=== PATIENT | female | born 1945 | race Caucasian/White ===

== ENCOUNTER 2017-05-11 18:57 | Emergency (ER) | payer MEDICARE, OTHER ==
[~2017-05-11] VITALS: Ht 154.9 cm; Wt 92.1 kg
--- NOTE | 2017-05-11 19:11 | PHYS DOC ---
General Chief Complaint: SHORTNESS OF BREATH Stated Complaint: SOB Time Seen by MD: 18:59 Source: patient, EMS Exam Limitations: clinical condition (vague historian history obtained from EMS and [facility] medical records) Problems: History of Present Illness Initial Comments 71-year-old female brought to the ED by EMS for chest tightness, shortness of breath and left leg swelling. Patient has history of coronary artery disease CHF and COPD among other extensive medical problems, chronic respiratory failure uses 3 L of O2 at home. She reports 2 days of worsening shortness of breath fever chills and body aches. She took an extra 40 mg of Lasix and 20 mEq of potassium at home prior to calling EMS and on arrival 1400 mL of urine output noted in her suprapubic Daly catheter. She also reports she has chronic bilateral leg swelling however over the past 24 hours has had worsening of her left leg swelling redness and pain. Earlier today complaining of worsening shortness of breath with chest tightness no nausea vomiting arm or neck symptoms. On arrival the patient was afebrile heart rate 91, 94% on her home 3 L of O2. Uses 3L O2 NC at home Numerous medication allergies she takes no blood thinners has history of GI bleed. She is a vague historian and past medical history is obtained from [facility] records. Timing/Duration: other Severity: severe Modifying Factors: worse with movement, improves with other Associated Symptoms: chest pain, cough, fever/chills, malaise, shortness of breath Allergies: Coded Allergies: Iodine and Iodide Containing Produc (Verified Allergy, Unknown, 05/11/17) NSAIDS (Non-Steroidal Anti-Inflamma (Verified Allergy, Unknown, 05/11/17) Penicillins (Verified Allergy, Unknown, 05/11/17) acetaminophen (Verified Allergy, Unknown, 05/11/17) adhesive (Verified Allergy, Unknown, 05/11/17) amitriptyline (Verified Allergy, Unknown, 05/11/17) aspirin (Verified Allergy, Unknown, 05/11/17) butorphanol (Verified Allergy, Unknown, 05/11/17) carbamazepine (Verified Allergy, Unknown, 05/11/17) cefamandole (Verified Allergy, Unknown, 05/11/17) cephalexin (Verified Allergy, Unknown, 05/11/17) chlorpromazine (Verified Allergy, Unknown, 05/11/17) clindamycin (Verified Allergy, Unknown, 05/11/17) codeine (Verified Allergy, Unknown, 05/11/17) diflunisal (Verified Allergy, Unknown, 05/11/17) fenoprofen (Verified Allergy, Unknown, 05/11/17) fentanyl (Verified Allergy, Unknown, 05/11/17) flurazepam (Verified Allergy, Unknown, 05/11/17) gentamicin (Verified Allergy, Unknown, 05/11/17) hydroxyzine (Verified Allergy, Unknown, 05/11/17) ibuprofen (Verified Allergy, Unknown, 05/11/17) ketorolac (Verified Allergy, Unknown, 05/11/17) levofloxacin (Verified Allergy, Unknown, 05/11/17) lorazepam (Verified Allergy, Unknown, 05/11/17) lovastatin (Verified Allergy, Unknown, 05/11/17) meclizine (Verified Allergy, Unknown, 05/11/17) nalbuphine (Verified Allergy, Unknown, 05/11/17) naproxen (Verified Allergy, Unknown, 05/11/17) nepafenac (Verified Allergy, Unknown, 05/11/17) nitrofurantoin (Verified Allergy, Unknown, 05/11/17) pentazocine (Verified Allergy, Unknown, 05/11/17) povidone-iodine (Verified Allergy, Unknown, 05/11/17) propoxyphene (Verified Allergy, Unknown, 05/11/17) soap (Verified Allergy, Unknown, 05/11/17) spironolactone (Verified Allergy, Unknown, 05/11/17) strawberry (Verified Allergy, Unknown, 05/11/17) tomato (Verified Allergy, Unknown, 05/11/17) tramadol (Verified Allergy, Unknown, 05/11/17) trimipramine (Verified Allergy, Unknown, 05/11/17) Past Medical History Medical History: other (chronic resp failure uses 3L O2 NC, RUE DVT, NSTEMI, CHF, COPD, chronic pain, HTN, GI bleed, hypothyroid, HLP, neurogenic bladder, gastric ulcers, sleep apnea, chronic RUE tremor, dementia, right rotator cuff tear, chronic opioid ) Surgical History: other (appendectomy, cholecystectomy, cataracts, left 1st MT osteotomy, tonsillectomy, left TKR) Psychosocial History: anxiety, depression Social History Smoker: quit greater than 1 year (2PPD x 5 years quit 1984) Alcohol: none Drugs: none Review of Systems Constitutional: see HPI Respiratory: see HPI Cardiovascular: see HPI, denies palpitations, denies syncope Gastrointestinal: denies abdominal pain, denies diarrhea, denies nausea, denies vomiting Musculoskeletal: see HPI, back pain (chronic) Hematologic/Lymphatic: anemia Physical Exam General Appearance: no apparent distress, obese Ear, Nose, Throat: other (hard of hearing, poor dentition airway is patent) Neck: non-tender, supple Respiratory: no respiratory distress, decreased breath sounds, rales, wheezing Cardiovascular: normal peripheral pulses, regular rate, rhythm Gastrointestinal: normal bowel sounds, non tender, soft Extremities: other (2+ right leg swelling, 4+ left leg swelling with erythema and warmth) 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 AP Chest: cardiac silhouette enlarged mediastinal structures appear normal, patchy bilateral infiltrate, interpreted by me. 2109: CT ordered/changed to noncontrast by RAD as has iodine allergy PATIENT: SARA JOE ACCOUNT: [id number] : 1945 LOCATION: ER AGE: 71 SEX: F EXAM STATUS: REG ER ORD. PHYSICIAN: CHERYLE FLOYD DO REASON: pain/swelling, dvt in past PROCEDURE: VENOUS LOWER EXTREMITY LEFT EXAM: Left lower extremity venous Doppler sonogram. HISTORY: Pain. TECHNIQUE: Rene scale and color Doppler sonographic evaluation of the left lower extremity veins with spectral waveform analysis was performed. FINDINGS: There is normal color flow, normal compressibility and there are normal spectral waveforms in the common femoral, superficial femoral, popliteal, posterior tibial and greater saphenous veins. IMPRESSION: No Doppler evidence of lower extremity deep venous thrombosis. Electronically signed by: Pauline Fonseca MD (05/11/2017 9:10 PM) [facility] DICTATED AND SIGNED BY: PAULINE FONSECA MD DATE: 05/11/172109 CC: CHERYLE FLOYD DO; RILEY DEWITT D ~ PATIENT: SARA JOE ACCOUNT: [id number] : 1945 LOCATION: ER AGE: 71 SEX: F EXAM STATUS: REG ER ORD. PHYSICIAN: CHERYLE FLOYD DO REASON: dyspnea, effusion, elev d-dimer PROCEDURE: CT CHEST WO CONTRAST EXAM: Chest CT without intravenous contrast. HISTORY: Dyspnea. TECHNIQUE: Computed tomographic images of the chest were obtained without contrast. Multiplanar reformatting was performed. *One or more of the following individualized dose reduction techniques were utilized for this examination: 1. Automated exposure control. 2. Adjustment of the mA and/or kV according to patient size. 3. Use of iterative reconstruction technique. COMPARISON: None. FINDINGS: There is no significant pleural effusion. There is no pneumothorax. There is bilateral lower lobe interstitial infiltrate with superimposed atelectasis or scarring. There is also infiltrate, atelectasis or scarring within the lingula and right middle lobe. There is a 7 mm nodule within the right middle lobe, with smaller adjacent nodular opacities measuring approximately 2 mm. The heart is upper normal in size. There is coronary artery and aortic atherosclerosis. There is calcification of the aortic valve. No pathologically enlarged lymph node is seen. There is a patulous esophagus. The lesion is seen within the liver on the [id number]. The visualized portions of the pancreas, spleen, adrenal glands and kidneys are unremarkable. There are degenerative changes throughout the spine. There are multiple chronic appearing mild thoracic wedge compression fractures. No acute fracture is seen. IMPRESSION: 1. Bilateral lower lobe infiltrate with superimposed atelectasis or scarring. There is also right middle lobe and lingular infiltrate, atelectasis or scarring. 2. 7 mm nodule within the right middle lobe with adjacent smaller nodular opacities. Follow up according to Fleischner Society criteria. 3. Patulous esophagus. Fleischner Society recommendations (Radiology 2005; 237; 395-400): In a low risk patient: <4mm - No follow up required. >4-6mm- 12 month follow up, if unchanged, no further follow up. >6-8mm- 6-12 month follow up, then at 18-24 months if no change. >8mm- 3, 9, 24 month follow up or consideration of PET/CT. In a high risk patient: <4mm - 12 month follow up, if unchanged then no further follow up. >4-6mm- 6-12 month follow up, then at 18-24 months if no change. >6-8mm- 3-6 month follow up, then at 9-12 months and 24 months if no change >8mm- Same as for low risk patient. Electronically signed by: Pauline Fonseca MD (05/11/2017 9:40 PM) [facility] DICTATED AND SIGNED BY: PAULINE FONSECA MD DATE: 05/11/172135 CC: CHERYLE FLOYD DO; RILEY DEWITT ~ No leukocytosis, chemistry and cardiac enzymes unremarkable, d-dimer 0.88 influenza studies negative I discussed the need for observation admission and antibacterial treatment, patient requests transfer to [facility]. 7: I discussed the patient with [facility] transfer team physician Dr. Mena , he accepts the patient and will get back to us shortly regarding which facility. 2304: Conference call with Giuliana Mena and Shar, patient accepted to [facility] for further evaluation and treatment. Patient is agreeable and comfortable, VSS remain stable 147/61, 97% on home O2. ED course: Patient's vital signs have remained stable and she's remained in no apparent distress throughout the ED course without any additional treatments. Levaquin and Vanco intravenously given for listed infections. Confirmed with patient no quinolone allergy has h/o GI upset, [facility] records indicate patient tolerated Cipro 03/2015. Impressions: Chest pain Multi-lobar pneumonia Left leg cellulitis Chronic respiratory failure stable on home O2 Departure Time of Disposition: 22:39 Disposition: 02 XFER SHT-TRM HOSP Condition: STABLE Additional Instructions: EMS transfer to [facility] CHERYLE FLOYD DO May 11, 2017 19:11
[2017-05-11] MEDS ORDERED: MORPHINE SULFATE 4 MG/ML DISP.SYRIN. IV/SQ PRN (19:30)
[2017-05-11 19:45] LABS: BASO # 0.1 x10^3/uL (0.0-0.2); BASO % 1 % (0-3); EOS # 0.2 x10^3/uL (0.0-0.7); EOS % 2 % (0-3); HEMOGLOBIN 10.4 g/dL (12.0-15.5); LYMPH % 10 % (24-48); MEAN CORPUSCULAR HEMOGLOBIN 29 pg (25-35); MEAN CORPUSCULAR HGB CONC 34 g/dL (31-37); MEAN CORPUSCULAR VOLUME 87 fL (79-100); MONO # 0.5 x10^3/uL (0.0-1.1); MONO % 5 % (0-9); NEUT % 82 % (31-73); PLATELET COUNT 168 x10^3/uL (140-400); RED BLOOD COUNT 3.55 x10^6/uL (3.50-5.40); RED CELL DISTRIBUTION WIDTH 13.7 % (11.5-14.5); WHITE BLOOD COUNT 9.8 x10^3/uL (4.0-11.0)
[2017-05-11 20:15] LABS: BILIRUBIN,URINE NEG (NEG); CLARITY,URINE CLEAR; COLOR,URINE COLORLESS; GLUCOSE,URINE NEG (NEG); NITRITE,URINE NEG (NEG); RBC,URINE 0 /HPF (0-2); UROBILINOGEN,URINE 0.2 mg/dL (0.2 mg/dL); WBC,URINE OCC /HPF (0-4)
[2017-05-11 20:16] LABS: BACTERIA,URINE 0 /HPF (0-FEW)
--- NOTE | 2017-05-11 20:18 | EKG ---
[address] [address] Test Date: 2017-05-11 Test Time: 19:01:43 Pat Name: SARA JOE Department: Room: Gender: F Breakfast And Room Attendant: AMANDA : 1945 Requested By: CHERYLE FLOYD Order Number: [id number] Reading MD: Measurements Intervals [place] Rate: 87 P: 37 DE: 150 QRS: 5 QRSD: 88 T: 30 QT: 376 QTc: 453 Interpretive Statements SINUS RHYTHM NO SPECIFIC ECG ABNORMALITIES RI6.01 No previous ECG available for comparison
[2017-05-11 20:22] LABS: ALBUMIN 3.7 g/dL (3.4-5.0); ALBUMIN/GLOBULIN RATIO 0.9 (1.0-1.7); CALCIUM 9.2 mg/dL (8.5-10.1); GFR 54.7; POTASSIUM 4.1 mmol/L (3.5-5.1); TOTAL BILIRUBIN 0.3 mg/dL (0.2-1.0); TOTAL PROTEIN 7.9 g/dL (6.4-8.2)
[2017-05-11 20:51] LABS: INFLUENZA A PATIENT NEGATIVE (NEGATIVE); INFLUENZA B PATIENT NEGATIVE (NEGATIVE)
[2017-05-11] MEDS ORDERED: IOHEXOL 300 MG/ML 75 ML VIAL. IV ONE (21:00)
--- NOTE | 2017-05-11 21:13 | RAD ---
EXAM: Left lower extremity venous Doppler sonogram. HISTORY: Pain. TECHNIQUE: Rene scale and color Doppler sonographic evaluation of the left lower extremity veins with spectral waveform analysis was performed. FINDINGS: There is normal color flow, normal compressibility and there are normal spectral waveforms in the common femoral, superficial femoral, popliteal, posterior tibial and greater saphenous veins. IMPRESSION: No Doppler evidence of lower extremity deep venous thrombosis. Electronically signed by: Pauline Willoughby MD (05/11/2017 9:10 PM) [facility]
--- NOTE | 2017-05-11 21:43 | RAD ---
EXAM: Chest CT without intravenous contrast. HISTORY: Dyspnea. TECHNIQUE: Computed tomographic images of the chest were obtained without contrast. Multiplanar reformatting was performed. *One or more of the following individualized dose reduction techniques were utilized for this examination: 1. Automated exposure control. 2. Adjustment of the mA and/or kV according to patient size. 3. Use of iterative reconstruction technique. COMPARISON: None. FINDINGS: There is no significant pleural effusion. There is no pneumothorax. There is bilateral lower lobe interstitial infiltrate with superimposed atelectasis or scarring. There is also infiltrate, atelectasis or scarring within the lingula and right middle lobe. There is a 7 mm nodule within the right middle lobe, with smaller adjacent nodular opacities measuring approximately 2 mm. The heart is upper normal in size. There is coronary artery and aortic atherosclerosis. There is calcification of the aortic valve. No pathologically enlarged lymph node is seen. There is a patulous esophagus. The lesion is seen within the liver on the [id number]. The visualized portions of the pancreas, spleen, adrenal glands and kidneys are unremarkable. There are degenerative changes throughout the spine. There are multiple chronic appearing mild thoracic wedge compression fractures. No acute fracture is seen. IMPRESSION: 1. Bilateral lower lobe infiltrate with superimposed atelectasis or scarring. There is also right middle lobe and lingular infiltrate, atelectasis or scarring. 2. 7 mm nodule within the right middle lobe with adjacent smaller nodular opacities. Follow up according to Fleischner Society criteria. 3. Patulous esophagus. Fleischner Society recommendations (Radiology 2005; 237; 395-400): In a low risk patient: <4mm - No follow up required. >4-6mm- 12 month follow up, if unchanged, no further follow up. >6-8mm- 6-12 month follow up, then at 18-24 months if no change. >8mm- 3, 9, 24 month follow up or consideration of PET/CT. In a high risk patient: <4mm - 12 month follow up, if unchanged then no further follow up. >4-6mm- 6-12 month follow up, then at 18-24 months if no change. >6-8mm- 3-6 month follow up, then at 9-12 months and 24 months if no change >8mm- Same as for low risk patient. Electronically signed by: Pauline Willoughby MD (05/11/2017 9:40 PM) [facility]
[2017-05-11 23:00] VITALS: BP 148/76
[2017-05-11] MEDS ORDERED: VANCOMYCIN PER PHARMACY MC PRN (23:15)
[2017-05-11] MEDS ORDERED: VANCOMYCIN 2 GM in IV NORMAL SALINE 500ML 500 ML IV ONE (23:30)
--- NOTE | 2017-05-12 08:12 | RAD ---
Chest radiograph 05/11/2017 9:23 PM Indication: CHF, shortness of air Comparison: Chest radiograph 11/03/2005 Technique: Single portable upright frontal view of the chest is provided. Findings: Cardiomediastinal silhouette is within normal limits. No pulmonary vascular congestion or pneumothorax. Consolidative changes in the left lower lobe and lingula are suspicious for infiltrates. There may be trace pleural effusions. Osseous structures are normal. Impression: Left lower lobe and lingular infiltrates are suspected. Short-term follow-up two-view chest radiograph may be of benefit. Trace bilateral pleural effusions.
== END 2017-05-12 00:21 | disposition short-term general hospital (02) ==
LOC: ER 18:57
DX: J18.1 Lobar pneumonia, unspecified organism (principal); J96.10 Chronic respiratory failure, unspecified whether with hypoxia or hypercapnia; L03.116 Cellulitis of left lower limb; R07.89 Other chest pain; I11.0 Hypertensive heart disease with heart failure; I50.9 Heart failure, unspecified; J44.0 Chronic obstructive pulmonary disease with (acute) lower respiratory infection; G89.29 Other chronic pain; E03.9 Hypothyroidism, unspecified; E78.5 Hyperlipidemia, unspecified; G47.30 Sleep apnea, unspecified; F03.90 Unspecified dementia, unspecified severity, without behavioral disturbance, psychotic disturbance, mood disturbance, and anxiety; F41.9 Anxiety disorder, unspecified; F32.9 Major depressive disorder, single episode, unspecified; I25.10 Atherosclerotic heart disease of native coronary artery without angina pectoris; Z90.49 Acquired absence of other specified parts of digestive tract; Z87.891 Personal history of nicotine dependence; Z86.718 Personal history of other venous thrombosis and embolism; Z87.19 Personal history of other diseases of the digestive system; Z99.81 Dependence on supplemental oxygen; Z88.6 Allergy status to analgesic agent; Z88.4 Allergy status to anesthetic agent; Z88.1 Allergy status to other antibiotic agents; Z91.041 Radiographic dye allergy status; Z88.5 Allergy status to narcotic agent; Z88.0 Allergy status to penicillin; Z88.8 Allergy status to other drugs, medicaments and biological substances; Z91.018 Allergy to other foods; Z91.048 Other nonmedicinal substance allergy status
CPT/HCPCS: 36415; 51702; 71045; 71250; 80053; 81001; 82550; 83605; 83880; 84484; 85025; 85379; 85610; 85730; 87040; 87804; 93005; 93971; 96365; 96367; 96375; 99285; J1956; J2270; J3370; J7040

== ENCOUNTER 2020-03-06 12:27 | Inpatient (IN) | payer MEDICARE, OTHER ==
[~2020-03-06] VITALS: Ht 154.9 cm; Wt 89.6 kg
--- NOTE | 2020-03-06 12:37 | PHYS DOC ---
Past History Past Medical History: Anemia, Anxiety, Bronchitis, CAD, CHF, Constipation, COPD, Depression, Diabetes, Endometriosis, GERD, GI Bleed, Hypertension, Hypothyroid, AK, Pneumonia, P.U.D, URI, UTI, Other Past Surgical History: Appendectomy, Cholecystectomy, Other Alcohol Use: None Drug Use: Opiates General Adult EDM: Chief Complaint: SHORTNESS OF BREATH HPI: HPI: History obtained from patient and EMS. Patient is a 74-year-old female with multiple comorbidities including oxygen dependent COPD, CHF, neurogenic bladder with suprapubic catheter who presents from her assisted living facility for abnormal lung sounds. Patient was diagnosed with Covid on February 24. Per EMS they were called her facility for diminished lung sounds. Patient uses 4 L of nasal cannula at baseline. 96% on EMS arrival. Patient states she has mild s hortness of breath. She notes increased generalized weakness over the past week. She does note a lack of appetite. Denies vomiting. Denies chest pain. Denies back pain. Denies syncope. Does not ambulate at baseline. Does have a suprapubic catheter that appears to be exchanged on March 04. She denies any recent antibiotics. Denies recent steroids. Does use an inhaler at home as needed. Denies any increased swelling. Patient has no other complaints. Review of Systems: Review of Systems: Constitutional: Denies fever or chills Eyes: Denies change in visual acuity HENT: Denies nasal congestion or sore throat Respiratory: Positive for shortness of breath Cardiovascular: Denies chest pain or edema GI: Denies abdominal pain, nausea, vomiting, bloody stools or diarrhea : Denies dysuria Musculoskeletal: Denies back pain or joint pain Integument: Denies rash Neurologic: Denies headache, focal weakness or sensory changes Endocrine: Denies polyuria or polydipsia Lymphatic: Denies swollen glands Psychiatric: Denies depression or anxiety Allergies: Allergies: Allergies Coded Allergies Type Severity Reaction Last Updated Verified Iodine and Iodide Containing Produc Allergy Unknown 05/11/17 Yes NSAIDS (Non-Steroidal Anti-Inflamma Allergy Unknown 05/11/17 Yes Penicillins Allergy Unknown 05/11/17 Yes acetaminophen Allergy Unknown 05/11/17 Yes adhesive Allergy Unknown 05/11/17 Yes amitriptyline Allergy Unknown 05/11/17 Yes aspirin Allergy Unknown 05/11/17 Yes butorphanol Allergy Unknown 05/11/17 Yes carbamazepine Allergy Unknown 05/11/17 Yes cefamandole Allergy Unknown 05/11/17 Yes cephalexin Allergy Unknown 05/11/17 Yes chlorpromazine Allergy Unknown 05/11/17 Yes clindamycin Allergy Unknown 05/11/17 Yes codeine Allergy Unknown 05/11/17 Yes diflunisal Allergy Unknown 05/11/17 Yes fenoprofen Allergy Unknown 05/11/17 Yes fentanyl Allergy Unknown 05/11/17 Yes flurazepam Allergy Unknown 05/11/17 Yes gentamicin Allergy Unknown 05/11/17 Yes hydroxyzine Allergy Unknown 05/11/17 Yes ibuprofen Allergy Unknown 05/11/17 Yes ketorolac Allergy Unknown 05/11/17 Yes levofloxacin Allergy Unknown 05/11/17 Yes lorazepam Allergy Unknown 05/11/17 Yes lovastatin Allergy Unknown 05/11/17 Yes meclizine Allergy Unknown 05/11/17 Yes nalbuphine Allergy Unknown 05/11/17 Yes naproxen Allergy Unknown 05/11/17 Yes nepafenac Allergy Unknown 05/11/17 Yes nitrofurantoin Allergy Unknown 05/11/17 Yes pentazocine Allergy Unknown 05/11/17 Yes povidone-iodine Allergy Unknown 05/11/17 Yes propoxyphene Allergy Unknown 05/11/17 Yes soap Allergy Unknown 05/11/17 Yes spironolactone Allergy Unknown 05/11/17 Yes strawberry Allergy Unknown 05/11/17 Yes tomato Allergy Unknown 05/11/17 Yes tramadol Allergy Unknown 05/11/17 Yes trimipramine Allergy Unknown 05/11/17 Yes Physical Exam: PE: Constitutional: Well developed, well nourished, no acute distress, non-toxic appearance. [] HENT: Normocephalic, atraumatic, bilateral external ears normal, oropharynx moist, no oral exudates, nose normal. [] Eyes: PERRLA, EOMI, conjunctiva normal, no discharge. [] Neck: Normal range of motion, no tenderness, supple, no stridor. [] Cardiovascular:Heart rate regular rhythm, no murmur [] Lungs & Thorax: Rhonchorous lung sounds bilaterally. No obvious wheezes appreciated. Nontachypneic. No accessory muscle usage noted. 96% on baseline 4 L nasal cannula. Abdomen: soft, no tenderness, no masses, no pulsatile masses. Suprapubic Daly catheter noted. Insertion site appears well-healed without purulent drainage. No surrounding induration or erythema. [] Skin: Warm, dry, no erythema, no rash. [] Back: No tenderness, no CVA tenderness. [] Extremities: No tenderness, no cyanosis, no clubbing, ROM intact, no edema. [] Neurologic: Alert and oriented X 3, normal motor function, normal sensory function, no focal deficits noted. [] Psychologic: Affect normal, judgement normal, mood normal. [] Current Patient Data: Labs: Laboratory Tests Test 03/06/20 13:21 03/06/20 14:11 Sodium Level 125 mmol/L Potassium Level 4.0 mmol/L Chloride Level 89 mmol/L Carbon Dioxide Level 26 mmol/L Anion Gap 10 Blood Urea Nitrogen 13 mg/dL Creatinine 0.8 mg/dL Estimated GFR (Cockcroft-Gault) 70.1 Glucose Level 94 mg/dL Lactic Acid Level 0.8 mmol/L Calcium Level 9.1 mg/dL Troponin I Quantitative < 0.017 ng/mL BT-Dqb-A-Type Natriuretic Peptide 158 pg/mL White Blood Count 4.6 x10^3/uL Red Blood Count 4.10 x10^6/uL Hemoglobin 12.0 g/dL Hematocrit 35.9 % Mean Corpuscular Volume 88 fL Mean Corpuscular Hemoglobin 29 pg Mean Corpuscular Hemoglobin Concent 34 g/dL Red Cell Distribution Width 12.8 % Platelet Count 187 x10^3/uL Neutrophils (%) (Auto) 60 % Lymphocytes (%) (Auto) 25 % Monocytes (%) (Auto) 14 % Eosinophils (%) (Auto) 0 % Basophils (%) (Auto) 1 % Neutrophils # (Auto) 2.8 x10^3uL Lymphocytes # (Auto) 1.1 x10^3/uL Monocytes # (Auto) 0.6 x10^3/uL Eosinophils # (Auto) 0.0 x10^3/uL Basophils # (Auto) 0.0 x10^3/uL Current Medications Medications (Trade) Dose Ordered Sig/Perla Route PRN Reason Start Time Stop Time Status Last Admin Dose Admin Albuterol Sulfate (Ventolin Hfa Inhaler) 2 puff 1X ONCE INH 03/06/20 12:45 12/19/20 12:46 DC 03/06/20 13:46 Vital Signs: Vital Signs Date Time Temp Pulse Resp B/P (MAP) Pulse Ox O2 Delivery O2 Flow Rate FiO2 03/06/20 13:12 100.0 72 20 157/146 (150) 95 Nasal Cannula 4.0 EKG: EKG: [] EKG consistent with normal sinus rhythm. Ventricular rate of 68 bpm. Left axis noted. Intervals normal. No acute ischemic changes noted. Radiology/Procedures: Radiology/Procedures: [address] [address] IMAGING REPORT Signed PATIENT: SARA JOE ACCOUNT: [id number] : 1945 LOCATION: ER AGE: 74 SEX: F EXAM STATUS: REG ER ORD. PHYSICIAN: KIMBERLY MARIE DO REASON: SOB, cough, congestion PROCEDURE: CHEST AP ONLY XR CHEST 1V Clinical indications: Shortness of breath, cough, congestion COMPARISON: May 11, 2017. Findings: There is chronic blunting of both lateral costophrenic angles which may be due to chronic pleural effusion or pleural thickening. There is increased thickening of the minor fissure which may indicate an increase in pleural fluid on the right side in comparison to the previous study. Chronic left lung base scarring which was seen previously. Otherwise no new consolidative lung infiltrate or perihilar pulmonary edema seen. No pneumothorax is seen. The heart size is unremarkable. The mediastinum is stable. Pulmonary vasculature is unremarkable. Impression: Stable chronic pleural thickening or chronic small pleural effusions. However, there is increased thickening of the minor fissure which may indicate increase in pleural fluid on the right side. Chronic small lung volumes. Electronically signed by: Sonia Godoy MD (03/06/2020 1:17 PM) [id number] DICTATED AND SIGNED BY: SONIA GODOY MD DATE: 03/06/20 1314 CC: KIMBERLY MARIE DO; RILEY DEWITT ~MTH0 0 [] Heart Score: Risk Factors: Risk Factors: DM, Current or recent (<one month) smoker, HTN, HLP, family history of CAD, obesity. Risk Scores: Score 0 - 3: 2.5% MACE over next 6 weeks - Discharge Home Score 4 - 6: 20.3% MACE over next 6 weeks - Admit for Clinical Observation Score 7 - 10: 72.7% MACE over next 6 weeks - Early Invasive Strategies Course & Med Decision Making: Course & Med Decision Making Pertinent Labs and Imaging studies reviewed. (See chart for details) [] Patient is a 74-year-old female who presents from her assisted living facility for generalized weakness. She did recently test positive for coronavirus. She is 96% on her baseline 4 L nasal cannula. No signs of respiratory distress. Basic labs were obtained. She does have a mild h yponatremia of 125 likely secondary to dehydration. I do feel the patient may benefit from hospitalization for fluid resuscitation of her dehydration. Family did request transfer to [facility] given this is respiratory for care takes place. Unfortunately, [facility] system is unable to accommodate transfers due to family request due to high volume status related to Covid. Patient will be hospitalized at our facility. We did explain to family that we can continue to try to facilitate transfer to [facility] while she is inpatient at [facility] if family desires so. Patient continues to remain hemodynamically stable. Signout given to hospitalist. Pj Disclaimer: Pj Disclaimer: This electronic medical record was generated, in whole or in part, using a voice recognition dictation system. Departure Departure: Impression: Primary Impression: Hyponatremia Additional Impressions: COVID-19 Dehydration Respiratory failure Qualified Codes: J96.11 - Chronic respiratory failure with hypoxia Disposition: ADMITTED INPT THIS HOSP Condition: STABLE Referrals: RILEY DEWITT (PCP) KIMBERLY MARIE DO Mar 06, 2020 12:37
[2020-03-06] MEDS ORDERED: ALBUTEROL SULFATE 8GM INHALER. INH ONE (12:45)
--- NOTE | 2020-03-06 13:20 | RAD ---
XR CHEST 1V Clinical indications: Shortness of breath, cough, congestion COMPARISON: May 11, 2017. Findings: There is chronic blunting of both lateral costophrenic angles which may be due to chronic p leural effusion or pleural thickening. There is increased thickening of the minor fissure which may i ndicate an increase in pleural fluid on the right side in comparison to the previous study. Chronic l eft lung base scarring which was seen previously. Otherwise no new consolidative lung infiltrate or p erihilar pulmonary edema seen. No pneumothorax is seen. The heart size is unremarkable. The mediastin um is stable. Pulmonary vasculature is unremarkable. Impression: Stable chronic pleural thickening or chronic small pleural effusions. However, there is i ncreased thickening of the minor fissure which may indicate increase in pleural fluid on the right si de. Chronic small lung volumes. Electronically signed by: Sage Godoy MD (03/06/2020 1:17 PM) [id number]
--- NOTE | 2020-03-06 13:44 | EKG ---
[address] [address] Test Date: 2020-03-06 Test Time: 12:52:25 Pat Name: SARA JOE Department: Room: Gender: F [employer]fter [employer]: : 1945 Requested By: KIMBERLY MARIE Order Number: [id number] Reading MD: Measurements Intervals [place] Rate: 68 P: 24 ID: [id number] QRS: 1 QRSD: 86 T: 34 QT: 414 QTc: 445 Interpretive Statements SINUS RHYTHM NORMAL ECG RI6.02 No previous ECG available for comparison
[2020-03-06 14:06] LABS: CALCIUM 9.1 mg/dL (8.5-10.1); CREATININE 0.8 mg/dL (0.6-1.0); GFR 70.1
[2020-03-06 14:26] LABS: BASO % 1 % (0-3); EOS % 0 % (0-3); HEMATOCRIT 35.9 % (36.0-47.0); LYMPH # 1.1 x10^3/uL (1.0-4.8); LYMPH % 25 % (24-48); MEAN CORPUSCULAR HEMOGLOBIN 29 pg (25-35); MEAN CORPUSCULAR HGB CONC 34 g/dL (31-37); MEAN CORPUSCULAR VOLUME 88 fL (79-100); MONO # 0.6 x10^3/uL (0.0-1.1); MONO % 14 % (0-9); NEUT # 2.8 x10^3uL (1.8-7.7); NEUT % 60 % (31-73); PLATELET COUNT 187 x10^3/uL (140-400); RED CELL DISTRIBUTION WIDTH 12.8 % (11.5-14.5); WHITE BLOOD COUNT 4.6 x10^3/uL (4.0-11.0)
[2020-03-06] MEDS: IV NORMAL SALINE 1,000ML 1,000 ML IV SCH (16:00)
--- NOTE | 2020-03-06 16:04 | NUR ---
PATIENT ARRIVED TO UNIT VIA EMS. PATIENTS VS OBTAINED AND ARE STABLE. TELE MONITOR RECEIVED. PATIENT IS ORIENTED TO UNIT AND PROCEDURES. PATIENT IS PLEASANT AND COOPERATIVE AND RESTING IN BED AT THIS TIME. DR MURPHY NOTIFIED OF ADMISSION. WILL CONTINUE TO MONITOR.
[2020-03-06 16:29] VITALS: BP 147/77
[2020-03-06] MEDS ORDERED: POTA20TA4 PO (17:38)
[2020-03-06] MEDS ORDERED: ALBU2.5V5 NEB (17:38)
[2020-03-06] MEDS ORDERED: DOCU-153 PO (17:38)
[2020-03-06] MEDS ORDERED: ESCITALOPRAM OXA5 MG PO (17:38)
[2020-03-06] MEDS ORDERED: OXYC5TAB88 PO (17:38)
[2020-03-06] MEDS ORDERED: NYST60PO TP (17:38)
[2020-03-06] MEDS ORDERED: CARV12.5 PO (17:38)
[2020-03-06] MEDS ORDERED: MONT10TA20 PO (17:38)
[2020-03-06] MEDS ORDERED: ZIPR40CA2 PO (17:38)
[2020-03-06] MEDS ORDERED: METH-38 PO (17:38)
[2020-03-06] MEDS ORDERED: PROM12.58 PO (17:38)
[2020-03-06] MEDS ORDERED: PROM25TA10 PO (17:38)
[2020-03-06] MEDS ORDERED: DIAZ10TA4 PO (17:38)
[2020-03-06] MEDS ORDERED: LOSA100T14 PO (17:38)
[2020-03-06] MEDS ORDERED: FLUT1DIS5 IH (17:38)
[2020-03-06] MEDS ORDERED: PANT40TA3 PO (17:38)
[2020-03-06] MEDS ORDERED: CALC500T31 PO (17:38)
[2020-03-06] MEDS ORDERED: NIFE60TA90 PO (17:38)
[2020-03-06] MEDS ORDERED: DOXY100C2 PO (17:38)
[2020-03-06] MEDS ORDERED: ONDA4TAB12 PO (17:38)
[2020-03-06] MEDS ORDERED: EZET10TA20 PO (17:38)
[2020-03-06] MEDS ORDERED: ASCO500C PO (17:38)
[2020-03-06] MEDS ORDERED: LEVO137T3 PO (17:38)
[2020-03-06] MEDS ORDERED: MULT-445 PO (17:38)
[2020-03-06] MEDS ORDERED: OXYB-36 PO (17:38)
[2020-03-06] MEDS ORDERED: GABA-586 PO (17:38)
[2020-03-06] MEDS ORDERED: NITR0.4T22 SL (17:38)
[2020-03-06] MEDS ORDERED: ATORVASTATIN CA80 MG PO (17:38)
[2020-03-06] MEDS ORDERED: FERR325T14 PO (17:38)
[2020-03-06] MEDS ORDERED: LACT1CAP6 PO (17:38)
[2020-03-06] MEDS ORDERED: ZINC220T3 PO (17:38)
[2020-03-06] MEDS ORDERED: DIPH25TA26 PO (17:38)
[2020-03-06] MEDS ORDERED: BENZ1LOZ48 PO (17:38)
[2020-03-06] MEDS ORDERED: POLY17PO5 PO (17:38)
[2020-03-06] MEDS ORDERED: ONDA-84 PO (17:38)
[2020-03-06] MEDS ORDERED: OXYC10TA46 PO (17:38)
[2020-03-06] MEDS ORDERED: DIAZ5TAB4 PO (17:38)
[2020-03-06] MEDS ORDERED: HYDR100T24 PO (17:38)
[2020-03-06] MEDS ORDERED: PEG15DRO4 EACHEYE (17:38)
[2020-03-06] MEDS ORDERED: ALBUTEROL SULFATE 2.5 MG/3 ML NEBU. NEB PRN (18:45)
[2020-03-06] MEDS ORDERED: NITROGLYCERIN SUBLINGUAL 0.4 MG BOTTLE OF 25. SL PRN (18:45)
[2020-03-06] MEDS ORDERED: NON FORMULARY ITEM (Ondansetron Hcl 4 MG) PO PRN (18:45)
[2020-03-06] MEDS ORDERED: ONDANSETRON ODT 4 MG TAB.RAPDIS PO PRN (18:45)
[2020-03-06] MEDS ORDERED: PROMETHAZINE 25 MG TABLET. PO PRN ×2 (18:45→19:15)
[2020-03-06] MEDS ORDERED: diphenhydrAMINE HCL 25 MG CAPSULE PO PRN (19:00)
[2020-03-06] MEDS ORDERED: BENZOCAINE/MENTHOL LOZNGE 18'S BOX. PO PRN (19:00)
[2020-03-06] MEDS ORDERED: METHOCARBAMOL 500 MG TABLET PO PRN (19:45)
[2020-03-06 21:00] VITALS: BP 144/74
[2020-03-06] MEDS: POLYVINYL ALCOHOL 1.4% OPHTH SOLUTION 15ML BOTTLE. OU SCH (21:00)
[2020-03-06] MEDS: ZIPRASIDONE 60 MG CAPSULE. PO SCH (21:00)
[2020-03-06] MEDS ORDERED: NON FORMULARY ITEM (Fluticasone/Salmeterol (Advair 500-50 Diskus) 1 PUFF) IH SCH (21:00)
[2020-03-06] MEDS: ATORVASTATIN CALCIUM 20 MG TABLET PO SCH (22:52)
[2020-03-06] MEDS: DOCUSATE SODIUM 100 MG CAPSULE PO SCH (22:52)
[2020-03-06] MEDS: diazePAM 5 MG TABLET. PO SCH (22:53)
[2020-03-06] MEDS: oxyCODONE ER 10 MG TAB.ER.12H PO SCH (22:53)
[2020-03-06] MEDS: GABAPENTIN 300 MG CAPSULE. PO SCH (22:53)
[2020-03-06] MEDS: MONTELUKAST 10 MG TABLET. PO SCH (22:53)
[2020-03-06] MEDS: DOXYCYCLINE HYCLATE 100 MG TABLET PO SCH (22:59)
[2020-03-06] MEDS: POTASSIUM CHLORIDE 20 MEQ TABLET.ER. PO SCH (23:00)
[2020-03-06] MEDS: ENOXAPARIN 40 MG/0.4 ML SYRINGE. SQ SCH (23:00)
[2020-03-06 23:47] VITALS: BP 161/89
[2020-03-07] MEDS: IV NORMAL SALINE 1,000ML 1,000 ML IV SCH ×3 (02:00→23:05)
[2020-03-07 06:31] VITALS: BP 154/78
[2020-03-07] MEDS ORDERED: LEVOTHYROXINE 137 MCG TABLET PO SCH (07:30)
[2020-03-07] MEDS ORDERED: ALBUTEROL SULFATE 8GM INHALER. INH PRN (07:30)
[2020-03-07] MEDS ORDERED: ALBUTEROL SULFATE 2.5 MG/3 ML NEBU. NEB SCH (08:00)
[2020-03-07] MEDS ORDERED: BUDESONIDE 0.5 MG/2 ML NEBU NEB SCH (08:00)
[2020-03-07 08:14] LABS: BASO % 1 % (0-3); EOS % 1 % (0-3); HEMATOCRIT 34.5 % (36.0-47.0); HEMOGLOBIN 11.5 g/dL (12.0-15.5); LYMPH # 1.1 x10^3/uL (1.0-4.8); LYMPH % 25 % (24-48); MEAN CORPUSCULAR HEMOGLOBIN 29 pg (25-35); MEAN CORPUSCULAR HGB CONC 33 g/dL (31-37); MEAN CORPUSCULAR VOLUME 88 fL (79-100); MONO # 0.6 x10^3/uL (0.0-1.1); MONO % 14 % (0-9); NEUT # 2.5 x10^3uL (1.8-7.7); NEUT % 60 % (31-73); PLATELET COUNT 184 x10^3/uL (140-400); RED BLOOD COUNT 3.92 x10^6/uL (3.50-5.40); RED CELL DISTRIBUTION WIDTH 12.8 % (11.5-14.5); WHITE BLOOD COUNT 4.2 x10^3/uL (4.0-11.0)
[2020-03-07] MEDS: LACTOBACILLUS RHAMNOSUS GG 1 CAPSULE. PO SCH (08:15)
[2020-03-07] MEDS: CARVEDILOL 12.5 MG TABLET PO SCH ×2 (08:15→17:04)
[2020-03-07] MEDS ORDERED: VITS A & D/LANOLIN TOPICAL OINTMENT 42GM TUBE. TP PRN (08:15)
[2020-03-07] MEDS: PANTOPRAZOLE 40 MG TABLET. PO SCH (08:15)
[2020-03-07] MEDS: POLYETHYLENE GLYCOL 3350 17 GM PACKET. PO SCH (08:15)
[2020-03-07] MEDS: MULTIVITAMIN with MINERAL TABLET. PO SCH (08:16)
[2020-03-07] MEDS: CALCIUM CARBONATE 500 MG TABLET PO SCH ×2 (08:16→17:04)
[2020-03-07] MEDS: DOCUSATE SODIUM 100 MG CAPSULE PO SCH ×2 (08:16→21:17)
[2020-03-07] MEDS: ZINC SULFATE 220 MG CAPSULE. PO SCH (08:16)
[2020-03-07] MEDS: OXYBUTYNIN CHLORIDE 5 MG TABLET PO SCH ×2 (08:16→21:17)
[2020-03-07] MEDS: diazePAM 5 MG TABLET. PO SCH ×3 (08:17→21:17)
[2020-03-07] MEDS: oxyCODONE ER 10 MG TAB.ER.12H PO SCH ×2 (08:17→21:17)
[2020-03-07] MEDS: POTASSIUM CHLORIDE 20 MEQ TABLET.ER. PO SCH ×2 (08:17→17:04)
[2020-03-07] MEDS: EZETIMIBE 10 MG TABLET PO SCH (08:17)
[2020-03-07] MEDS: DOXYCYCLINE HYCLATE 100 MG TABLET PO SCH ×2 (08:17→21:17)
[2020-03-07] MEDS: FERROUS SULFATE 325 MG TABLET. PO SCH ×2 (08:17→17:04)
[2020-03-07] MEDS: ASCORBIC ACID 500 MG TABLET PO SCH (08:17)
[2020-03-07 08:18] LABS: ALBUMIN 3.1 g/dL (3.4-5.0); ALBUMIN/GLOBULIN RATIO 0.8 (1.0-1.7); CALCIUM 8.7 mg/dL (8.5-10.1); CREATININE 0.8 mg/dL (0.6-1.0); GFR 70.1; POTASSIUM 3.5 mmol/L (3.5-5.1); TOTAL BILIRUBIN 0.3 mg/dL (0.2-1.0)
[2020-03-07] MEDS: FLUTICASONE/VILANTEROL 200/25 INHALER. INH SCH (08:19)
[2020-03-07] MEDS: POLYVINYL ALCOHOL 1.4% OPHTH SOLUTION 15ML BOTTLE. OU SCH ×4 (09:00→21:00)
[2020-03-07 10:40] VITALS: BP 105/52
--- NOTE | 2020-03-07 15:00 | HP ---
ADMIT DATE: 03/06/2020 HISTORY OF PRESENT ILLNESS: This is a 74-year-old female patient, a resident at [facility], who was brought to the Emergency Room with worsening shortness of breath. She was diagnosed with COVID on 02/25/2020. As per EMS, they were called to her facility for diminished lung sounds. The patient uses 4 liters of oxygen by nasal cannula at baseline 96%. When the EMS personnel arrived, she stated that she has mild shortness of breath. She notes increased generalized weakness over the past week. She does note a lack of appetite. Denies vomiting. Denies any chest pain. Denied any back pain. Denied any syncope. Does not ambulate at baseline. She does have a suprapubic catheter that appears to be exchanged on 03/04. She denied any recent antibiotic therapy. Denied any recent steroids. She does use an inhaler at home as needed. Denied any increased swelling. She has no other complaints. She was extensively investigated in the Emergency Room and basically has had lab work done. Her CBC was basically unremarkable. Her chemistry showed that she has hyponatremia with serum sodium of 125. However, her chest x-ray showed that she has stable chronic pleural thickening or chronic small pleural effusion; however, there is increased thickening with minor fissure, which may indicate increasing pleural fluid on the right side, chronic small lung volumes. The patient was admitted to the hospital and was basically started on normal saline at 100 mL per hour. We continued all her other medications. PAST MEDICAL HISTORY: Significant for hypothyroidism, morbid obesity. She has a neurogenic bladder, requiring suprapubic catheter, major depressive disorder, generalized anxiety disorder, chronic obstructive pulmonary disease, chronic pain syndrome, pure hypercholesterolemia, anemia of chronic kidney disease, bipolar disorder, peripheral vascular disease, atherosclerotic heart disease of [place] coronary arteries without angina pectoris, chronic kidney disease, unspecified; heart failure, unspecified and she also obviously was diagnosed with COVID-19 infection in 02/25/2020. PAST SURGICAL HISTORY: Significant for suprapubic catheter placement. She has an extensive list of allergies that is listed in her chart and too numerous to actually even account. FAMILY HISTORY: Noncontributory. SOCIAL HISTORY: She lives at the nursing facility. She does not smoke, drink alcohol or use any recreational drugs. REVIEW OF SYSTEMS: As per history of present illness. PHYSICAL EXAMINATION: GENERAL: On arrival to the Emergency Room, the patient was well and was clearly in no apparent respiratory distress. No pallor, jaundice, cyanosis, or thyromegaly. No jugular venous distension. No lower limb edema. VITAL SIGNS: Her heart rate was 72, blood pressure was 157/77, respiratory rate was 20, her temperature was 100, respiratory rate 20, and oxygen saturation was 95% on 4 liters of oxygen. HEAD, EYES, EARS, NOSE AND THROAT: Showed normocephalic, atraumatic. NECK: Supple. CARDIAC: Normal first and second heart sounds. No gallop, rub or murmur. CHEST: Showed central trachea, equal bilateral expansion, air entry, vesicular breath sounds. No crepitation or rhonchi. ABDOMEN: Slightly distended, soft, nontender. NEUROLOGIC: She is awake, alert, responding appropriately. All cranial nerves intact. She apparently mostly bed bound, wheelchair bound. LABORATORY DATA: Her lab work on admission showed a white cell count of 4600, hemoglobin 12, hematocrit 36, MCV 88 and platelet count of 187,000. Her chemistry showed serum sodium of 125, potassium 4, chloride 89, bicarbonate 26, anion gap of 10, BUN 13, creatinine 0.8, estimated GFR was 70 mL per minute. Her glucose was 94, calcium was 9.1. Lactic acid was only 0.8. Her beta natriuretic peptide is only 158 and her chest x-ray, as I stated, showed that the patient has stable chronic pleural thickening or chronic small pleural effusion; however, there is increased thickening of the minor fissure, which may indicate increased pleural fluid on the right side. She has chronic small lung volumes. ASSESSMENT AND PLAN: The patient was admitted with COVID-19 infection, hyponatremia, dehydration and chronic hypoxic respiratory failure. The patient has her urine and blood sent for culture and sensitivity and was admitted and was started on normal saline at 100 mL per hour and we continued all her medication except medication that might be contributing to her hyponatremia. We held her escitalopram oxalate as the potential cause for inappropriate antidiuretic hormone. We held also her losartan, potassium and continued all other medications. We will obviously follow her closely and adjust her IV fluid and medication as needed. CHRIS MURPHY MD DR: GRAHAM/marbin JOB#: [id number] / [id number]
[2020-03-07 15:18] VITALS: BP 118/77
[2020-03-07] MEDS: MEROPENEM 500 MG in IV NORMAL SALINE 50ML 50 ML IV SCH ×2 (15:21→23:06)
[2020-03-07] MEDS: oxyCODONE IR 5 MG TABLET PO PRN (17:42)
--- NOTE | 2020-03-07 20:33 | PN ---
DATE: 03/07/2020 SUBJECTIVE: The patient is resting, slightly propped up in bed, in no apparent respiratory distress. She is awake, alert. On questioning her, she denied any chest pain or shortness of breath. PHYSICAL EXAMINATION: GENERAL: When I examined her, there was no pallor, jaundice, cyanosis or thyromegaly. No jugular venous distention. No limb edema. VITAL SIGNS: Her heart rate was 73, blood pressure was 144/74, temperature was 98.1, respiratory rate was 16, and oxygen saturation was 97% on 4 liters of oxygen. HEAD, EYES, EARS, NOSE, AND THROAT: Showed normocephalic, atraumatic. NECK: Supple. CARDIAC: Heart, normal first and second heart sounds. No gallop, rub or murmur. CHEST: Clear to auscultation. No crepitation or rhonchi. ABDOMEN: Distended, soft, nontender. NEUROLOGIC: All her cranial nerves are grossly intact. She moves upper extremities to much good control lower extremities. She is mostly bed bound, wheelchair bound. She has a suprapubic catheter in place. LABORATORY DATA: Her lab work this morning showed serum sodium slightly up 128, potassium 3.5, chloride 93, bicarbonate 26, anion gap of 9, BUN 12, creatinine was 0.8, estimated GFR was 70 mL per minute. Her glucose 116, calcium was 8.7. Total bilirubin, AST, ALT, alkaline phosphatase were normal. Total protein 7, albumin 3.1. TSH was slightly elevated at 4.534. ASSESSMENT: 1. In summary, this is a 74-year-old female patient who was admitted with dehydration and hyponatremia. 2. COVID-19. 3. Chronic hypoxic respiratory failure. 4. Chronic obstructive pulmonary disease. 5. Chronic kidney disease. 6. Anemia of chronic kidney disease. 7. Hypothyroidism. 8. Neurogenic bladder requiring suprapubic catheter. PLAN: To continue with IV fluid. She did spike a temperature yesterday up to 100.7. We did blood cultures and urine culture. The results were still pending at the time of this dictation. She is afebrile today. Her white cell count is normal. My plan is to start her on IV antibiotic and continue with IV fluid, continue with all other medication. I will continue holding her Lexapro as well as losartan for now and monitor her closely. CHRIS MURPHY MD DR: GRAHAM/marbin JOB#: [id number] / [id number]
[2020-03-07 20:50] VITALS: BP 134/53
[2020-03-07] MEDS: ATORVASTATIN CALCIUM 20 MG TABLET PO SCH (21:16)
[2020-03-07] MEDS: GABAPENTIN 300 MG CAPSULE. PO SCH (21:16)
[2020-03-07] MEDS: ZIPRASIDONE 60 MG CAPSULE. PO SCH (21:16)
[2020-03-07] MEDS: MONTELUKAST 10 MG TABLET. PO SCH (21:17)
[2020-03-07] MEDS: ENOXAPARIN 40 MG/0.4 ML SYRINGE. SQ SCH (21:20)
[2020-03-07 23:57] VITALS: BP 114/54
[2020-03-08] MEDS: MEROPENEM 500 MG in IV NORMAL SALINE 50ML 50 ML IV SCH ×3 (05:20→22:56)
[2020-03-08] MEDS: oxyCODONE IR 5 MG TABLET PO PRN ×2 (05:20→16:27)
[2020-03-08] MEDS: LEVOTHYROXINE 137 MCG TABLET PO SCH (05:20)
[2020-03-08 07:00] LABS: HEMATOCRIT 32.8 % (36.0-47.0); HEMOGLOBIN 10.6 g/dL (12.0-15.5); RED BLOOD COUNT 3.64 x10^6/uL (3.50-5.40); RED CELL DISTRIBUTION WIDTH 13.3 % (11.5-14.5)
[2020-03-08 07:16] LABS: ALBUMIN 2.8 g/dL (3.4-5.0); ALBUMIN/GLOBULIN RATIO 0.8 (1.0-1.7); CALCIUM 8.1 mg/dL (8.5-10.1); CREATININE 0.8 mg/dL (0.6-1.0); GFR 70.1; POTASSIUM 3.6 mmol/L (3.5-5.1); TOTAL BILIRUBIN 0.3 mg/dL (0.2-1.0); TOTAL PROTEIN 6.5 g/dL (6.4-8.2)
[2020-03-08] MEDS: IV NORMAL SALINE 1,000ML 1,000 ML IV SCH (08:14)
[2020-03-08] MEDS: EZETIMIBE 10 MG TABLET PO SCH (08:14)
[2020-03-08] MEDS: DOCUSATE SODIUM 100 MG CAPSULE PO SCH ×2 (08:14→22:57)
[2020-03-08] MEDS: CALCIUM CARBONATE 500 MG TABLET PO SCH ×2 (08:14→16:27)
[2020-03-08] MEDS: DOXYCYCLINE HYCLATE 100 MG TABLET PO SCH ×2 (08:15→22:56)
[2020-03-08] MEDS: ASCORBIC ACID 500 MG TABLET PO SCH (08:15)
[2020-03-08] MEDS: CARVEDILOL 12.5 MG TABLET PO SCH ×2 (08:15→16:26)
[2020-03-08] MEDS: FERROUS SULFATE 325 MG TABLET. PO SCH ×2 (08:15→16:26)
[2020-03-08] MEDS: diazePAM 5 MG TABLET. PO SCH ×3 (08:15→22:57)
[2020-03-08] MEDS: NYSTATIN TOPICAL POWDER 15GM BOTTLE. TP PRN (08:16)
[2020-03-08] MEDS: FLUTICASONE/VILANTEROL 200/25 INHALER. INH SCH (08:16)
[2020-03-08] MEDS: POLYETHYLENE GLYCOL 3350 17 GM PACKET. PO SCH (08:21)
[2020-03-08] MEDS: LACTOBACILLUS RHAMNOSUS GG 1 CAPSULE. PO SCH (08:22)
[2020-03-08] MEDS: ZINC SULFATE 220 MG CAPSULE. PO SCH (08:22)
[2020-03-08] MEDS: POTASSIUM CHLORIDE 20 MEQ TABLET.ER. PO SCH ×2 (08:22→16:26)
[2020-03-08] MEDS: oxyCODONE ER 10 MG TAB.ER.12H PO SCH ×2 (08:23→22:57)
[2020-03-08] MEDS: MULTIVITAMIN with MINERAL TABLET. PO SCH (08:23)
[2020-03-08] MEDS: OXYBUTYNIN CHLORIDE 5 MG TABLET PO SCH ×2 (08:24→22:57)
[2020-03-08] MEDS: PANTOPRAZOLE 40 MG TABLET. PO SCH (08:24)
[2020-03-08] MEDS: POLYVINYL ALCOHOL 1.4% OPHTH SOLUTION 15ML BOTTLE. OU SCH ×4 (09:00→21:00)
[2020-03-08 09:05] VITALS: BP 132/92
[2020-03-08 12:09] VITALS: BP 127/56
[2020-03-08 14:50] VITALS: BP 139/52
[2020-03-08] MEDS ORDERED: FUROSEMIDE 40 MG/4 ML VIAL IVP ONE (17:15)
--- NOTE | 2020-03-08 17:17 | RAD ---
XR CHEST 1V Clinical indications: Worsening shortness of breath COMPARISON: March 06, 2020. Findings: Increase in right-sided pleural effusion is seen which is now moderate in size with increas ing compressive atelectasis or consolidative right lung base infiltrate is seen. Small left sided ple ural effusion is unchanged. No new perihilar pulmonary edema is seen. No pneumothorax is seen. The he art size and mediastinum are stable. IMPRESSION: Increasing right-sided pleural effusion and associated compressive atelectasis or consoli dative right lung base infiltrate. Electronically signed by: Sage Godoy MD (03/08/2020 5:14 PM) [id number]
--- NOTE | 2020-03-08 19:52 | PN ---
DATE: 03/08/2020 SUBJECTIVE: She wants to be called Holiday and Holiday is resting, slightly propped up, clearly tachypneic, has recurrent bouts of distressing cough. She is hypoxic, requiring 5 liters of oxygen by nasal cannula to maintain her oxygen saturation around 93%. Denied any chest pain, denied any chills, rigors or fever. PHYSICAL EXAMINATION: GENERAL: When I examined her this afternoon, she was somewhat pale, but no jaundice, cyanosis or thyromegaly. No jugular venous distention. No lower limb edema. VITAL SIGNS: Her heart rate was 84, blood pressure was 139/52, temperature was 99.4, respiratory rate was 28 and oxygen saturation was 93% on 5 liters of oxygen. HEAD, EYES, EARS, NOSE AND THROAT: Showed normocephalic, atraumatic. NECK: Supple. HEART: Showed normal first and second heart sounds. No gallop, rub or murmur. CHEST: Clear to auscultation with bilateral basal crepitation. I could not appreciate any rhonchi. ABDOMEN: Distended, soft, nontender. NEUROLOGIC: She is awake, alert, responding appropriately. All her cranial nerves are intact. She moves upper extremities with much good extent than lower extremities. She has what seemed to be parkinsonian tremors. Her intake was 390, output was 600. LABORATORY DATA: As of this morning, her white cell count was 6000, hemoglobin 10, hematocrit 33, MCV 90, and platelet count of 184,000. Her chemistry showed a serum sodium 133, potassium 3.6, chloride 100, bicarbonate 25, anion gap of 8, BUN 1, creatinine was 0.8, estimated GFR was 70, glucose was 114, and calcium was 8.1. Total bilirubin, AST, ALT, alkaline phosphatase were normal. Total protein 6.5, albumin was 3.8. Her D-dimer was 0.53. Her blood cultures are so far negative with no growth after 2 days. ASSESSMENT: 1. This is a 74-year-old female patient who was admitted with dehydration, hyponatremia. 2. COVID-19 infection. 3. Chronic hypoxic respiratory failure. 4. Chronic obstructive pulmonary disease. 5. Chronic kidney disease. 6. Anemia of chronic kidney disease. 7. Hypothyroidism. 8. Neurogenic bladder requiring suprapubic catheter. PLAN: My plan is to continue with IV antibiotic in the form of meropenem. I will add also vancomycin. I will continue with all other medication. I will hold the IV fluid as her serum sodium is up now from 125-133. CHRIS MURPHY MD DR: GRAHAM/marbin JOB#: [id number] / [id number]
[2020-03-08 20:17] VITALS: BP 139/70
[2020-03-08] MEDS: ATORVASTATIN CALCIUM 20 MG TABLET PO SCH (22:56)
[2020-03-08] MEDS: MONTELUKAST 10 MG TABLET. PO SCH (22:56)
[2020-03-08] MEDS: GABAPENTIN 300 MG CAPSULE. PO SCH (22:57)
[2020-03-08] MEDS: ZIPRASIDONE 60 MG CAPSULE. PO SCH (22:58)
[2020-03-08] MEDS: ENOXAPARIN 40 MG/0.4 ML SYRINGE. SQ SCH (23:00)
[2020-03-08 23:55] VITALS: BP 145/64
[2020-03-09] MEDS: LEVOTHYROXINE 137 MCG TABLET PO SCH (05:10)
[2020-03-09] MEDS: MEROPENEM 500 MG in IV NORMAL SALINE 50ML 50 ML IV SCH ×3 (05:10→21:20)
[2020-03-09 05:48] VITALS: BP 115/51
[2020-03-09 06:46] LABS: HEMATOCRIT 31.7 % (36.0-47.0); HEMOGLOBIN 10.5 g/dL (12.0-15.5); RED BLOOD COUNT 3.57 x10^6/uL (3.50-5.40); RED CELL DISTRIBUTION WIDTH 12.8 % (11.5-14.5); WHITE BLOOD COUNT 5.1 x10^3/uL (4.0-11.0)
[2020-03-09 07:03] LABS: ALBUMIN 2.8 g/dL (3.4-5.0); ALBUMIN/GLOBULIN RATIO 0.7 (1.0-1.7); C REACTIVE PROTEIN 56.8 mg/L (0-3.3); CALCIUM 8.8 mg/dL (8.5-10.1); CREATININE 0.6 mg/dL (0.6-1.0); GFR 97.7; POTASSIUM 3.1 mmol/L (3.5-5.1); TOTAL BILIRUBIN 0.4 mg/dL (0.2-1.0); TOTAL PROTEIN 6.7 g/dL (6.4-8.2)
[2020-03-09] MEDS: NYSTATIN TOPICAL POWDER 15GM BOTTLE. TP PRN (08:23)
[2020-03-09] MEDS: POLYETHYLENE GLYCOL 3350 17 GM PACKET. PO SCH (08:23)
[2020-03-09] MEDS: PANTOPRAZOLE 40 MG TABLET. PO SCH (08:24)
[2020-03-09] MEDS: FERROUS SULFATE 325 MG TABLET. PO SCH ×2 (08:25→16:11)
[2020-03-09] MEDS: OXYBUTYNIN CHLORIDE 5 MG TABLET PO SCH ×2 (08:25→21:19)
[2020-03-09] MEDS: CALCIUM CARBONATE 500 MG TABLET PO SCH ×2 (08:25→16:11)
[2020-03-09] MEDS: POTASSIUM CHLORIDE 20 MEQ TABLET.ER. PO SCH ×2 (08:25→17:56)
[2020-03-09] MEDS: EZETIMIBE 10 MG TABLET PO SCH (08:25)
[2020-03-09] MEDS: DOCUSATE SODIUM 100 MG CAPSULE PO SCH ×2 (08:25→21:20)
[2020-03-09] MEDS: ASCORBIC ACID 500 MG TABLET PO SCH (08:25)
[2020-03-09] MEDS: LACTOBACILLUS RHAMNOSUS GG 1 CAPSULE. PO SCH (08:25)
[2020-03-09] MEDS: MULTIVITAMIN with MINERAL TABLET. PO SCH (08:26)
[2020-03-09] MEDS: CARVEDILOL 12.5 MG TABLET PO SCH ×2 (08:26→16:11)
[2020-03-09] MEDS: DOXYCYCLINE HYCLATE 100 MG TABLET PO SCH ×2 (08:26→21:00)
[2020-03-09] MEDS: ZINC SULFATE 220 MG CAPSULE. PO SCH (08:27)
[2020-03-09] MEDS: oxyCODONE ER 10 MG TAB.ER.12H PO SCH ×2 (08:27→21:19)
[2020-03-09] MEDS: diazePAM 5 MG TABLET. PO SCH ×3 (08:27→21:20)
[2020-03-09] MEDS: FLUTICASONE/VILANTEROL 200/25 INHALER. INH SCH (08:28)
[2020-03-09] MEDS: POLYVINYL ALCOHOL 1.4% OPHTH SOLUTION 15ML BOTTLE. OU SCH ×4 (09:00→21:00)
[2020-03-09 10:40] VITALS: BP 134/103
[2020-03-09 15:01] VITALS: BP 124/56
[2020-03-09] MEDS ORDERED: FUROSEMIDE 40 MG/4 ML VIAL IVP ONE (15:45)
[2020-03-09] MEDS ORDERED: POTASSIUM CHLORIDE 20 MEQ TABLET.ER. PO ONE ×2 (15:45→16:45)
--- NOTE | 2020-03-09 17:00 | NUR ---
Wound/Ostomy Care Wound Type/Assessment: Wound consult for buttock wound. Pt has IAD to biateral buttocks and upper thighs. Cleansed and measured area of redness with purple areas. Treatment Recommendations/Plan: Applied A&D ointment, recommend to reapply BID and PRN Education provided: wound care POC and PU prevention. Pt will need reinforcement of teaching. Offloading surface/device: pillows Recommended Referrals/Tests: na Discharge Recommendations for dressings: TQ2H, continue with A&D ointment
[2020-03-09 19:15] VITALS: BP 141/64
--- NOTE | 2020-03-09 21:02 | PN ---
DATE: 03/09/2020 SUBJECTIVE: She goes by Polly. Polly is resting slightly propped up in bed, in no apparent distress. She definitely looks much better. She is not as tachypneic or distressed as yesterday; however, she continued to have this dry hacking cough. Her oxygen saturation is 97% on 4 liters of oxygen. She actually said that she is hungry and would like some ice cream and other food. OBJECTIVE: GENERAL: When I saw her this afternoon, she was resting slightly propped up in bed, in no apparent respiratory distress, pale, but no jaundice or cyanosis. No lymphadenopathy, no thyromegaly. No jugular venous distention. No lower limb edema. VITAL SIGNS: Her heart rate was 80, blood pressure was 124/56, temperature 97, respiratory rate was 18 and oxygen saturation was 97% on 4 liters of oxygen. HEAD, EYES, EARS, NOSE, THROAT: Showed normocephalic, atraumatic. NECK: Supple. HEART: Showed normal first and second heart sounds. No gallop, rub or murmur. CHEST: Shows central trachea, equal bilateral chest expansion, air entry, vesicular breath sounds with crepitation bilaterally posteriorly. ABDOMEN: Distended, soft, nontender. NEUROLOGIC: She is definitely more awake, alert. All her cranial nerves intact. She moves upper extremities to much good extent than lower extremities. She is mostly bedbound. Her intake over the last 24 hours was 960 and output was 4300. LABORATORY DATA: As of this morning showed a white cell count 5100, hemoglobin 10.5, hematocrit 31, MCV 89 and platelet count of 194,000. Her chemistry showed a serum sodium 131, potassium 3.1, chloride 97, bicarbonate 27, anion gap of 7, BUN 7, creatinine 0.6, estimated GFR was 97 mL per minute. Her glucose was 100, calcium was 8.8. Total bilirubin, AST, ALT, alkaline phosphatase were normal. Her beta natriuretic peptide was 594. Total protein 6.7, albumin was 2.8. Her morning cortisol was 16.3 and TSH was slightly high at 4.534. Her D-dimer was slightly elevated at 0.58. ASSESSMENT: 1. This is a 74-year-old female patient who was admitted with dehydration and hyponatremia. 2. COVID-19 infection. 3. Chronic hypoxic respiratory failure. 4. Chronic obstructive pulmonary disease. 5. Chronic kidney disease. 6. Anemia of chronic kidney disease. 7. Hypothyroidism. 8. Neurogenic bladder requiring suprapubic catheter. PLAN: To obviously continue with IV antibiotic. She definitely doing much better. Continue with all her medication. She has hypokalemia for which we will replenish her with potassium. She also seemed to have acute diastolic congestive heart failure for which I have treated her yesterday with IV Lasix and give her some more Lasix today and if she remains stable, she might be able to go back to the [facility] tomorrow. CHRIS MURPHY MD DR: GRAHAM/marbin JOB#: [id number] / [id number]
[2020-03-09] MEDS: MONTELUKAST 10 MG TABLET. PO SCH (21:18)
[2020-03-09] MEDS: ZIPRASIDONE 60 MG CAPSULE. PO SCH (21:18)
[2020-03-09] MEDS: ENOXAPARIN 40 MG/0.4 ML SYRINGE. SQ SCH (21:19)
[2020-03-09] MEDS: GABAPENTIN 300 MG CAPSULE. PO SCH (21:20)
[2020-03-09] MEDS: ATORVASTATIN CALCIUM 20 MG TABLET PO SCH (21:20)
[2020-03-09 23:41] VITALS: BP 100/47
[2020-03-10] MEDS: LEVOTHYROXINE 137 MCG TABLET PO SCH (05:08)
[2020-03-10] MEDS: MEROPENEM 500 MG in IV NORMAL SALINE 50ML 50 ML IV SCH ×3 (05:08→19:54)
[2020-03-10 06:29] LABS: CALCIUM 9.1 mg/dL (8.5-10.1); CREATININE 0.8 mg/dL (0.6-1.0); GFR 70.1; POTASSIUM 4.2 mmol/L (3.5-5.1)
[2020-03-10] MEDS: PANTOPRAZOLE 40 MG TABLET. PO SCH (07:30)
[2020-03-10] MEDS: POLYETHYLENE GLYCOL 3350 17 GM PACKET. PO SCH (08:34)
[2020-03-10] MEDS: LACTOBACILLUS RHAMNOSUS GG 1 CAPSULE. PO SCH (08:34)
[2020-03-10] MEDS: DOCUSATE SODIUM 100 MG CAPSULE PO SCH ×2 (08:34→19:53)
[2020-03-10] MEDS: oxyCODONE ER 10 MG TAB.ER.12H PO SCH (08:34)
[2020-03-10] MEDS: FERROUS SULFATE 325 MG TABLET. PO SCH ×2 (08:34→17:12)
[2020-03-10] MEDS: CALCIUM CARBONATE 500 MG TABLET PO SCH (08:35)
[2020-03-10] MEDS: MULTIVITAMIN with MINERAL TABLET. PO SCH (08:35)
[2020-03-10] MEDS: ZINC SULFATE 220 MG CAPSULE. PO SCH (08:35)
[2020-03-10] MEDS: ASCORBIC ACID 500 MG TABLET PO SCH (08:35)
[2020-03-10] MEDS: CARVEDILOL 12.5 MG TABLET PO SCH ×2 (08:35→17:12)
[2020-03-10] MEDS: OXYBUTYNIN CHLORIDE 5 MG TABLET PO SCH (08:36)
[2020-03-10] MEDS: DOXYCYCLINE HYCLATE 100 MG TABLET PO SCH ×2 (08:36→19:54)
[2020-03-10] MEDS: diazePAM 5 MG TABLET. PO SCH ×2 (08:37→15:18)
[2020-03-10] MEDS: EZETIMIBE 10 MG TABLET PO SCH (08:37)
[2020-03-10] MEDS: POTASSIUM CHLORIDE 20 MEQ TABLET.ER. PO SCH ×2 (08:37→17:13)
[2020-03-10] MEDS: ENOXAPARIN 40 MG/0.4 ML SYRINGE. SQ SCH (08:37)
[2020-03-10] MEDS: FLUTICASONE/VILANTEROL 200/25 INHALER. INH SCH (08:38)
[2020-03-10] MEDS: POLYVINYL ALCOHOL 1.4% OPHTH SOLUTION 15ML BOTTLE. OU SCH ×4 (09:00→19:55)
--- NOTE | 2020-03-10 10:26 | PN ---
DATE: 03/10/2020 ATTENDING PHYSICIANS: Dr. Priest and Dr. Black. SUBJECTIVE: The patient is pleasantly confused. She is dyspneic with minimal exertion. Oxygen saturation are adequate. She is otherwise doing better. OBJECTIVE FINDINGS: VITAL SIGNS: Blood pressure today is 100/47, pulse is 76 and regular, oxygen saturation 93% on room air. She was afebrile. HEENT: Head is without trauma. Pupils are reactive. Sclerae nonicteric. Oropharynx clear. NECK: Supple. No stridor. LUNGS: Shallow respirations. CARDIOVASCULAR: Showed regular heart tones. No gallops. Peripheral pulses are palpable and full. ABDOMEN: Soft, scaphoid, nontender, no organomegaly. Bowel sounds were hypoactive. EXTREMITIES: Showed no cyanosis or edema. NEUROLOGIC: Focally intact. No deficit. She is nonambulatory. Medications were reviewed. ASSESSMENT: 1. A 74-year-old female with generalized debilitation. 2. COVID-19 infection. 3. Chronic obstructive pulmonary disease. 4. Chronic kidney disease. 5. Polypharmacy. 6. Neurogenic bladder. 7. Hypothyroidism. PLAN: 1. Continue meropenem as ordered. 2. Simplification of meds. 3. Diet as tolerated. 4. Tentative discharge plan when blood pressure is slightly better. DIANE BLACK MD DR: ASHLEY/marbin JOB#: [id number] / [id number]
[2020-03-10 11:34] VITALS: BP 147/64
[2020-03-10 16:18] VITALS: BP 134/98
[2020-03-10 19:34] VITALS: BP 117/60
[2020-03-10] MEDS: ATORVASTATIN CALCIUM 20 MG TABLET PO SCH (19:53)
[2020-03-10] MEDS: MONTELUKAST 10 MG TABLET. PO SCH (19:53)
[2020-03-10] MEDS: ZIPRASIDONE 60 MG CAPSULE. PO SCH (19:54)
[2020-03-10 22:25] VITALS: BP 124/53
[2020-03-11 05:13] VITALS: BP 131/61
[2020-03-11] MEDS: LEVOTHYROXINE 137 MCG TABLET PO SCH (06:00)
[2020-03-11] MEDS: MEROPENEM 500 MG in IV NORMAL SALINE 50ML 50 ML IV SCH ×3 (06:00→19:41)
[2020-03-11] MEDS: LACTOBACILLUS RHAMNOSUS GG 1 CAPSULE. PO SCH (08:22)
[2020-03-11] MEDS: EZETIMIBE 10 MG TABLET PO SCH (08:22)
[2020-03-11] MEDS: DOCUSATE SODIUM 100 MG CAPSULE PO SCH ×2 (08:22→19:40)
[2020-03-11] MEDS: diazePAM 5 MG TABLET. PO SCH ×2 (08:22→15:08)
[2020-03-11] MEDS: ZINC SULFATE 220 MG CAPSULE. PO SCH (08:22)
[2020-03-11] MEDS: MULTIVITAMIN with MINERAL TABLET. PO SCH (08:22)
[2020-03-11] MEDS: PANTOPRAZOLE 40 MG TABLET. PO SCH (08:23)
[2020-03-11] MEDS: DOXYCYCLINE HYCLATE 100 MG TABLET PO SCH ×2 (08:23→19:40)
[2020-03-11] MEDS: POLYETHYLENE GLYCOL 3350 17 GM PACKET. PO SCH (08:23)
[2020-03-11] MEDS: POTASSIUM CHLORIDE 20 MEQ TABLET.ER. PO SCH ×2 (08:23→17:08)
[2020-03-11] MEDS: POLYVINYL ALCOHOL 1.4% OPHTH SOLUTION 15ML BOTTLE. OU SCH ×4 (08:24→19:41)
[2020-03-11] MEDS: CARVEDILOL 12.5 MG TABLET PO SCH ×2 (08:24→17:04)
[2020-03-11] MEDS: FERROUS SULFATE 325 MG TABLET. PO SCH ×2 (08:24→17:04)
[2020-03-11] MEDS: FLUTICASONE/VILANTEROL 200/25 INHALER. INH SCH (08:24)
[2020-03-11 14:19] VITALS: BP 149/62
--- NOTE | 2020-03-11 14:38 | PN ---
DATE: 03/11/2020 ATTENDING PHYSICIAN: Dr. Priest. SUBJECTIVE: The patient remains pleasantly confused. She is less dyspneic today. She is a little more awake, but she is still very lethargic. She is arousable. She is nonambulatory. OBJECTIVE FINDINGS: VITAL SIGNS: Blood pressure is better today, it is 131/61 mmHg, pulse is 70 and regular, temperature 97.6 degrees Fahrenheit, oxygen saturation are still 98% on 4 liters. We are in the process of trying to wean her down. HEENT: Head is without trauma. Pupils are reactive. Sclerae nonicteric. Oropharynx clear. NECK: Supple, no bruits. LUNGS: Shallow respirations with diminished breath sounds at the right base. CARDIOVASCULAR: Showed distant heart tones. No gallops. ABDOMEN: Soft, no guarding, no rebound tenderness. Hypoactive bowel sounds. EXTREMITIES: Showed trace edema. NEUROLOGIC: Pleasantly confused. She is nonambulatory. LABORATORY DATA: Reviewed, yesterday's hemoglobin was 10.5, potassium is up to 4.2 mEq, creatinine is 0.8 mg/dL. ASSESSMENT: 1. A 74-year-old [place] resident with generalized debilitation. 2. COVID-19 infection. 3. Chronic obstructive pulmonary disease. 4. Chronic respiratory failure. 5. Chronic kidney disease. 6. Polypharmacy. 7. Neurogenic bladder. 8. Hypothyroidism, on replacement. PLAN: 1. Continue meropenem as ordered. 2. Meds have been simplified. 3. Diet as tolerated. 4. We are weaning down oxygen saturation. 5. Discharge planning for later this week. DIANE BLACK MD DR: ASHLEY/marbin JOB#: [id number] / [id number]
[2020-03-11 17:15] VITALS: BP 137/62
[2020-03-11 19:22] VITALS: BP 147/78
[2020-03-11] MEDS: MONTELUKAST 10 MG TABLET. PO SCH (19:40)
[2020-03-11] MEDS: ATORVASTATIN CALCIUM 20 MG TABLET PO SCH (19:40)
[2020-03-11] MEDS: oxyCODONE/APAP 7.5/325 1 TAB TABLET PO PRN (19:41)
[2020-03-11] MEDS: ENOXAPARIN 40 MG/0.4 ML SYRINGE. SQ SCH (19:41)
[2020-03-11] MEDS: ZIPRASIDONE 60 MG CAPSULE. PO SCH (21:00)
[2020-03-12] MEDS: LEVOTHYROXINE 137 MCG TABLET PO SCH (05:24)
[2020-03-12] MEDS: oxyCODONE/APAP 7.5/325 1 TAB TABLET PO PRN ×3 (05:24→20:37)
[2020-03-12] MEDS: MEROPENEM 500 MG in IV NORMAL SALINE 50ML 50 ML IV SCH ×3 (05:24→22:00)
[2020-03-12 06:05] VITALS: BP 170/78
[2020-03-12] MEDS: POTASSIUM CHLORIDE 20 MEQ TABLET.ER. PO SCH ×2 (07:58→16:22)
[2020-03-12] MEDS: EZETIMIBE 10 MG TABLET PO SCH (07:58)
[2020-03-12] MEDS: FLUTICASONE/VILANTEROL 200/25 INHALER. INH SCH (07:58)
[2020-03-12] MEDS: DOXYCYCLINE HYCLATE 100 MG TABLET PO SCH ×2 (07:58→20:36)
[2020-03-12] MEDS: LACTOBACILLUS RHAMNOSUS GG 1 CAPSULE. PO SCH (07:58)
[2020-03-12] MEDS: diazePAM 5 MG TABLET. PO SCH ×2 (07:59→14:33)
[2020-03-12] MEDS: PANTOPRAZOLE 40 MG TABLET. PO SCH (07:59)
[2020-03-12] MEDS: ZINC SULFATE 220 MG CAPSULE. PO SCH (07:59)
[2020-03-12] MEDS: MULTIVITAMIN with MINERAL TABLET. PO SCH (07:59)
[2020-03-12] MEDS: DOCUSATE SODIUM 100 MG CAPSULE PO SCH ×2 (07:59→20:36)
[2020-03-12] MEDS: CARVEDILOL 12.5 MG TABLET PO SCH ×2 (07:59→16:22)
[2020-03-12] MEDS: FERROUS SULFATE 325 MG TABLET. PO SCH ×2 (07:59→16:22)
[2020-03-12] MEDS: POLYETHYLENE GLYCOL 3350 17 GM PACKET. PO SCH (08:00)
[2020-03-12] MEDS: POLYVINYL ALCOHOL 1.4% OPHTH SOLUTION 15ML BOTTLE. OU SCH ×4 (08:00→20:06)
--- NOTE | 2020-03-12 11:08 | PN ---
DATE: 03/12/2020 ATTENDING PHYSICIAN: Dr. Sheree Priest and Dr. Diane Black SUBJECTIVE: The patient is very alert today. 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 She is still dyspneic with minimal exertion. The patient is much more coherent today. We had a fairly normal conversation. OBJECTIVE FINDINGS: VITAL SIGNS: Blood pressure today is 170/78, pulse 68 and regular, temperature 96.6 degrees Fahrenheit, oxygen saturation 94% on 4 liters nasal cannula. HEENT: Head is without trauma. Pupils are reactive. Sclerae nonicteric. Oropharynx clear. NECK: Supple, no bruits. LUNGS: Shallow respirations with minimal crackles at bases. CARDIOVASCULAR: Showed regular heart tones. No gallops. ABDOMEN: Soft, no rebound tenderness, no guarding. EXTREMITIES: Showed trace edema. NEUROLOGIC: Much less confused. She had a normal conversation. She remains nonambulatory and total care. ASSESSMENT: 1. A 74-year-old [facility] resident with generalized debilitation. 2. COVID-19 infection. 3. Chronic obstructive pulmonary disease. 4. Chronic respiratory failure. 5. Chronic kidney disease. 6. Polypharmacy. 7. Neurogenic bladder. 8. Hypothyroidism, on replacement. PLAN: 1. Continue IV meropenem. 2. Meds have been simplified. 3. Diet as tolerated. 4. We are still trying to wean down oxygen requirements. DIANE BLACK MD DR: ASHLEY/marbin JOB#: [id number] / [id number]
[2020-03-12 11:20] VITALS: BP 142/76
[2020-03-12 14:57] VITALS: BP 156/77
[2020-03-12 20:17] VITALS: BP 155/67
[2020-03-12] MEDS: ZIPRASIDONE 60 MG CAPSULE. PO SCH (20:36)
[2020-03-12] MEDS: MONTELUKAST 10 MG TABLET. PO SCH (20:36)
[2020-03-12] MEDS: ATORVASTATIN CALCIUM 20 MG TABLET PO SCH (20:36)
[2020-03-12] MEDS: ENOXAPARIN 40 MG/0.4 ML SYRINGE. SQ SCH (20:37)
[2020-03-12 23:36] VITALS: BP 117/60
--- NOTE | 2020-03-13 04:32 | NUR ---
PT WAS IN BED UPON ASSESSMENT AND MED PASS. PT ABLE TO TAKE MEDS WHOLE FLOATED IN APPLESAUCE. PT IS Q 2HR TURNS BUT WILL ROLE HERSELF BACK ON TO HER BACK. PT HAS A&D OINTMENT FOR BUTTOCK AND NYSTATIN FOR UNDER BREAST. PT DOESN'T NOT ASSIST WITH BED ROLES OR CHANGING.
[2020-03-13] MEDS: MEROPENEM 500 MG in IV NORMAL SALINE 50ML 50 ML IV SCH ×3 (05:07→21:54)
[2020-03-13] MEDS: LEVOTHYROXINE 137 MCG TABLET PO SCH (05:07)
[2020-03-13] MEDS: oxyCODONE/APAP 7.5/325 1 TAB TABLET PO PRN ×3 (05:08→20:10)
[2020-03-13 06:13] VITALS: BP 166/93
[2020-03-13] MEDS: ZINC SULFATE 220 MG CAPSULE. PO SCH (08:12)
[2020-03-13] MEDS: PANTOPRAZOLE 40 MG TABLET. PO SCH (08:13)
[2020-03-13] MEDS: CARVEDILOL 12.5 MG TABLET PO SCH ×2 (08:13→16:52)
[2020-03-13] MEDS: diazePAM 5 MG TABLET. PO SCH (08:13)
[2020-03-13] MEDS: DOXYCYCLINE HYCLATE 100 MG TABLET PO SCH ×2 (08:14→20:10)
[2020-03-13] MEDS: POLYVINYL ALCOHOL 1.4% OPHTH SOLUTION 15ML BOTTLE. OU SCH ×4 (08:15→20:12)
[2020-03-13] MEDS: LACTOBACILLUS RHAMNOSUS GG 1 CAPSULE. PO SCH (08:15)
[2020-03-13] MEDS: POLYETHYLENE GLYCOL 3350 17 GM PACKET. PO SCH (08:15)
[2020-03-13] MEDS: FERROUS SULFATE 325 MG TABLET. PO SCH ×2 (08:15→16:52)
[2020-03-13] MEDS: POTASSIUM CHLORIDE 20 MEQ TABLET.ER. PO SCH ×2 (08:15→16:52)
[2020-03-13] MEDS: DOCUSATE SODIUM 100 MG CAPSULE PO SCH (08:15)
[2020-03-13] MEDS: FLUTICASONE/VILANTEROL 200/25 INHALER. INH SCH (08:16)
[2020-03-13 10:19] VITALS: BP 136/59
--- NOTE | 2020-03-13 11:58 | PN ---
DATE: 03/13/2020 ATTENDING PHYSICIAN: Dr. Priest. SUBJECTIVE: Very anxious, complaining of chronic low back pain. She is more alert today. OBJECTIVE FINDINGS: VITAL SIGNS: Blood pressure today is 136/59, pulse is 87 and regular, temperature 97.6, oxygen saturation 96% on 3 liters of nasal cannula. HEENT: Head is without trauma. Pupils are reactive. Sclerae nonicteric. Oropharynx clear. NECK: Supple, no bruits identified. LUNGS: Shallow respirations. Minimal rhonchi at bases. CARDIOVASCULAR: Showed distant heart tones. No gallops. ABDOMEN: Soft. EXTREMITIES: Without edema. NEUROLOGIC: She is bedridden and nonambulatory. SKIN: Warm and dry. ASSESSMENT: 1. A 74-year-old female, residential resident with generalized debilitation. 2. COVID-19 infection. 3. Chronic obstructive pulmonary disease. 4. Acute on chronic respiratory failure, stable. 5. Chronic kidney disease. 6. Polypharmacy. 7. Neurogenic bladder. 8. Hypothyroidism, on replacement. PLAN: 1. Continue IV meropenem through the weekend. 2. Simplification of meds. 3. She is on potassium supplement today. Last potassium 4.2 mEq and followup can be in the morning. 4. Diet as tolerated. 5. Tentative discharge plan back to residential on Sunday. DIANE BLACK MD DR: ASHLEY/marbin JOB#: [id number] / [id number]
[2020-03-13 15:51] VITALS: BP 154/66
[2020-03-13 19:28] VITALS: BP 166/64
[2020-03-13] MEDS: ATORVASTATIN CALCIUM 20 MG TABLET PO SCH (20:10)
[2020-03-13] MEDS: ENOXAPARIN 40 MG/0.4 ML SYRINGE. SQ SCH (20:11)
[2020-03-13] MEDS: ZIPRASIDONE 60 MG CAPSULE. PO SCH (20:12)
[2020-03-13 22:16] VITALS: BP 142/48
--- NOTE | 2020-03-14 04:24 | NUR ---
Nursing notes: Pt called frequently during shift. Discussed with pt expectations regarding care. A&D ointment applied to buttocks per orders.
[2020-03-14] MEDS: MEROPENEM 500 MG in IV NORMAL SALINE 50ML 50 ML IV SCH ×3 (05:27→20:42)
[2020-03-14] MEDS: LEVOTHYROXINE 137 MCG TABLET PO SCH (05:27)
[2020-03-14] MEDS: oxyCODONE/APAP 7.5/325 1 TAB TABLET PO PRN ×2 (05:28→13:57)
[2020-03-14 05:46] VITALS: BP 170/92
[2020-03-14] MEDS: FERROUS SULFATE 325 MG TABLET. PO SCH ×2 (08:48→17:12)
[2020-03-14] MEDS: LACTOBACILLUS RHAMNOSUS GG 1 CAPSULE. PO SCH (08:48)
[2020-03-14] MEDS: POLYETHYLENE GLYCOL 3350 17 GM PACKET. PO SCH (08:48)
[2020-03-14] MEDS: DOXYCYCLINE HYCLATE 100 MG TABLET PO SCH ×2 (08:48→20:41)
[2020-03-14] MEDS: POTASSIUM CHLORIDE 20 MEQ TABLET.ER. PO SCH ×2 (08:48→17:12)
[2020-03-14] MEDS: PANTOPRAZOLE 40 MG TABLET. PO SCH (08:48)
[2020-03-14] MEDS: POLYVINYL ALCOHOL 1.4% OPHTH SOLUTION 15ML BOTTLE. OU SCH ×4 (08:49→20:42)
[2020-03-14] MEDS: CARVEDILOL 12.5 MG TABLET PO SCH ×2 (08:49→17:12)
[2020-03-14] MEDS: FLUTICASONE/VILANTEROL 200/25 INHALER. INH SCH (08:49)
[2020-03-14] MEDS: ZINC SULFATE 220 MG CAPSULE. PO SCH (08:49)
[2020-03-14 10:37] VITALS: BP 178/98
--- NOTE | 2020-03-14 13:15 | PN ---
DATE: 03/14/2020 ATTENDING PHYSICIANS: Dr. Priest and Dr. Black. CHIEF COMPLAINT: Less anxious. SUBJECTIVE: Still has chronic back pain. She is still debilitated and bedridden. She requires 2:1 for transfer. She is nonambulatory. She is a little more awake today. OBJECTIVE FINDINGS: VITAL SIGNS: Blood pressure today is 170/92, pulse 89 and regular, temperature 97.3 degrees Fahrenheit and her oxygen requirement, she is 96% on 3 liters nasal cannula. HEENT: Head is without trauma. Pupils are reactive. Sclerae nonicteric. Oropharynx is clear. NECK: Supple, no bruits identified. LUNGS: Shallow respirations with diminished breath sounds at bases. CARDIOVASCULAR: Showed distant heart tones. No gallops. ABDOMEN: Soft, no guarding. Bowel sounds are hypoactive. EXTREMITIES: Showed no cyanosis or edema. NEUROLOGIC FINDINGS: She is bedridden and nonambulatory. She does respond to questions appropriately. She remains pleasantly confused. SKIN: Warm and dry. ASSESSMENT: 1. A 74-year-old female with generalized debilitation. 2. COVID-19 infection. 3. Chronic obstructive pulmonary disease. 4. Elevated right hemidiaphragm. 5. Acute on chronic respiratory failure. 6. Chronic kidney disease. 7. Polypharmacy. 8. Neurogenic bladder. 9. Hypothyroidism, on replacement. PLAN: 1. Continue IV meropenem today. 2. Simplification of meds. 3. Follow up chemistries. 4. Diet as tolerated. 5. Tentative discharge planning to [facility] tomorrow. DIANE BLACK MD DR: ASHLEY/marbin JOB#: [id number] / [id number]
[2020-03-14 15:17] VITALS: BP 159/84
[2020-03-14 19:15] VITALS: BP 125/62
[2020-03-14] MEDS: ATORVASTATIN CALCIUM 20 MG TABLET PO SCH (20:41)
[2020-03-14] MEDS: ENOXAPARIN 40 MG/0.4 ML SYRINGE. SQ SCH (20:41)
[2020-03-14] MEDS: ZIPRASIDONE 60 MG CAPSULE. PO SCH (20:41)
[2020-03-14 23:06] VITALS: BP 133/60
[2020-03-15] MEDS: oxyCODONE/APAP 7.5/325 1 TAB TABLET PO PRN ×4 (01:35→20:16)
[2020-03-15] MEDS: LEVOTHYROXINE 137 MCG TABLET PO SCH (05:28)
[2020-03-15] MEDS: MEROPENEM 500 MG in IV NORMAL SALINE 50ML 50 ML IV SCH ×3 (05:29→20:18)
[2020-03-15 06:12] VITALS: BP 120/65
[2020-03-15 06:57] LABS: CALCIUM 9.2 mg/dL (8.5-10.1); CREATININE 0.7 mg/dL (0.6-1.0); GFR 81.8; POTASSIUM 4.2 mmol/L (3.5-5.1)
[2020-03-15] MEDS: FERROUS SULFATE 325 MG TABLET. PO SCH ×2 (08:17→16:55)
[2020-03-15] MEDS: LACTOBACILLUS RHAMNOSUS GG 1 CAPSULE. PO SCH (08:18)
[2020-03-15] MEDS: ZINC SULFATE 220 MG CAPSULE. PO SCH (08:18)
[2020-03-15] MEDS: POTASSIUM CHLORIDE 20 MEQ TABLET.ER. PO SCH ×2 (08:18→16:55)
[2020-03-15] MEDS: PANTOPRAZOLE 40 MG TABLET. PO SCH (08:19)
[2020-03-15] MEDS: DOXYCYCLINE HYCLATE 100 MG TABLET PO SCH ×2 (08:19→20:17)
[2020-03-15] MEDS: CARVEDILOL 12.5 MG TABLET PO SCH ×2 (08:19→16:55)
[2020-03-15] MEDS: POLYETHYLENE GLYCOL 3350 17 GM PACKET. PO SCH (08:20)
[2020-03-15] MEDS: POLYVINYL ALCOHOL 1.4% OPHTH SOLUTION 15ML BOTTLE. OU SCH ×4 (08:20→20:18)
[2020-03-15] MEDS: FLUTICASONE/VILANTEROL 200/25 INHALER. INH SCH (08:20)
[2020-03-15 10:30] VITALS: BP 158/90
[2020-03-15 15:30] VITALS: BP 134/72
[2020-03-15 19:10] VITALS: BP 160/87
--- NOTE | 2020-03-15 20:04 | PN ---
DATE: 03/15/2020 ATTENDING PHYSICIAN: Dr. Priest. SUBJECTIVE: Still has chronic pain, although she is much more lucid. She is not as obtunded. We did simplify her meds. She remains 2:1 for transfer and nonambulatory. OBJECTIVE: VITAL SIGNS: Blood pressure today is 120/65, pulse is 71 and regular, temperature 97.4 degrees Fahrenheit, and oxygen saturation 98% on 3 liters on nasal cannula. HEENT: Head is without trauma. Pupils are reactive. Sclerae nonicteric. Oropharynx clear. NECK: Supple. No stridor. LUNGS: Good breath sounds, but diminished breath sounds at bases. CARDIOVASCULAR: Showed distant heart tones. No gallops. ABDOMEN: Soft, no guarding or rebound tenderness. EXTREMITIES: Showed trace edema. NEUROLOGIC: Pleasantly confused. Speech is fluent. Sales Analyst were intact and symmetrical. SKIN: Warm and dry. ASSESSMENT: 1. A 74-year-old female with generalized debilitation. 2. COVID-19 infection. 3. Chronic obstructive pulmonary disease. 4. Elevated right hemidiaphragm. 5. Acute on chronic respiratory failure, stable. 6. Polypharmacy. 7. Chronic kidney disease. 8. Neurogenic bladder. 9. Hypothyroidism, on replacement. PLAN: 1. Meds reviewed and simplified. 2. Continue 1 more day of meropenem. 3. Tentative discharge back to assisted tomorrow. DIANE BLACK MD DR: ASHLEY/marbin JOB#: [id number] / [id number]
[2020-03-15] MEDS: ZIPRASIDONE 60 MG CAPSULE. PO SCH (20:17)
[2020-03-15] MEDS: ATORVASTATIN CALCIUM 20 MG TABLET PO SCH (20:17)
[2020-03-15] MEDS: ENOXAPARIN 40 MG/0.4 ML SYRINGE. SQ SCH (20:18)
[2020-03-15 23:31] VITALS: BP 135/62
[2020-03-16] MEDS: oxyCODONE/APAP 7.5/325 1 TAB TABLET PO PRN ×3 (01:55→13:59)
[2020-03-16 05:45] VITALS: BP 160/73
[2020-03-16] MEDS: LEVOTHYROXINE 137 MCG TABLET PO SCH (05:46)
[2020-03-16] MEDS: MEROPENEM 500 MG in IV NORMAL SALINE 50ML 50 ML IV SCH (05:46)
[2020-03-16] MEDS: LACTOBACILLUS RHAMNOSUS GG 1 CAPSULE. PO SCH (07:39)
[2020-03-16] MEDS: DOXYCYCLINE HYCLATE 100 MG TABLET PO SCH (07:40)
[2020-03-16] MEDS: FERROUS SULFATE 325 MG TABLET. PO SCH (07:40)
[2020-03-16] MEDS: PANTOPRAZOLE 40 MG TABLET. PO SCH (07:40)
[2020-03-16] MEDS: POTASSIUM CHLORIDE 20 MEQ TABLET.ER. PO SCH (07:40)
[2020-03-16] MEDS: CARVEDILOL 12.5 MG TABLET PO SCH (07:40)
[2020-03-16] MEDS: ZINC SULFATE 220 MG CAPSULE. PO SCH (07:40)
[2020-03-16 07:41] VITALS: BP 160/73
[2020-03-16] MEDS: FLUTICASONE/VILANTEROL 200/25 INHALER. INH SCH (07:42)
[2020-03-16] MEDS: POLYVINYL ALCOHOL 1.4% OPHTH SOLUTION 15ML BOTTLE. OU SCH ×2 (07:42→13:00)
[2020-03-16] MEDS: POLYETHYLENE GLYCOL 3350 17 GM PACKET. PO SCH (09:00)
--- NOTE | 2020-03-16 10:32 | DS ---
DATE OF DISCHARGE: 03/16/2020 ATTENDING PHYSICIAN: Dr. Priest. FINAL DISCHARGE DIAGNOSES: 1. COVID-19 infection. 2. Generalized debilitation. 3. Chronic obstructive pulmonary disease. 4. Elevated right hemidiaphragm. 5. Acute on chronic respiratory failure, improved. 6. Polypharmacy. 7. Chronic kidney disease. 8. Neurogenic bladder. 9. Hypothyroidism, on replacement. HISTORY AND PHYSICAL: This 74-year-old female with significant psychiatric issues, was admitted from the skilled nursing with COVID-19 positive status and respiratory failure, questionable pneumonia on x-ray. She had elevated right hemidiaphragm. PHYSICAL EXAMINATION: Please see the dictated note. PERTINENT LABORATORY AND X-RAY STUDIES: X-ray showed increasing right-sided pleural effusion, atelectasis and consolidation in the right base. This will be followed up as an outpatient. Hemoglobin initially was 12.0 g/dL, repeated was 10.5 g/dL, white count 5100. Chemistry panel: Sodium was replaced up to 133 mEq, potassium replaced up to 4.2 mEq. Nonfasting blood sugar 100, creatinine 0.7. Cardiac enzymes were negative. The cortisol level was 16. COURSE IN THE HOSPITAL: The patient received 10 full days of intravenous antibiotics. Her home meds were simplified. She still require her pain meds, especially her OxyContin. She did fairly well. Oxygen saturations were adequate on the 11th hospital day, arrangements were made for the patient to return to the [facility]. She had been afebrile. Blood pressure was stable at 160/70, oxygen saturation 96% on 3 liters by nasal cannula. She is discharged home with simplification of meds. She will continue her on OxyContin 10 mg b.i.d. with 5 mg of oxycodone for breakthrough pain, Protonix 40 mg daily, MiraLax, eye drops, Geodon 60 mg at bedtime, albuterol, Coreg 12.5 mg b.i.d., Lexapro, Synthroid, losartan, nifedipine, nitroglycerin, nystatin. For now, we held her ascorbic acid, Lipitor, calcium, diazepam, diphenhydramine, ferrous sulfate, Zetia, doxycycline, Neurontin, Robaxin, ondansetron, promethazine, potassium, and zinc. I recommended 7 more days of Levaquin for her infection 500 mg p.o. b.i.d. and then stop. Her prognosis is guarded. She was discharged then from our hospital in stable condition with explicit instructions and followup care at the skilled nursing. TOTAL DISCHARGE TIME SPENT: 41 minutes. DIANE BLACK MD DR: ASHLEY/marbin JOB#: [id number] / [id number] CHRIS Mina MD
--- NOTE | 2020-03-16 15:23 | NUR ---
PATIENT IS DISCHARGED TO [facility], REPORT GIVEN TO ASHLEE MAHMOOD, FAMILY NOTIFIED, PATIENT LEFT ROOM VIA W/C ACCOMP BY STAFF. PATIENT TAKEN TO REHAB VIA FACILITY VEHICLE. HARD COPIES OF SCRIPTS AND DISCHARGE INFO SENT WITH PATIENT IN A DISCHARGED PACKET .
[2020-06-27] MEDS ORDERED: LACT1CAP37 PO (19:45)
== END 2020-03-16 15:20 | DRG 177 ==
LOC: ER 12:27 → 1 SOUTH 15:10
PROVIDERS: ADMIT Internal Medicine; ATTEND Internal Medicine
DX: U07.1 COVID-19 (principal); J96.21 Acute and chronic respiratory failure with hypoxia; J12.89 Other viral pneumonia; E87.1 Hypo-osmolality and hyponatremia; I13.0 Hypertensive heart and chronic kidney disease with heart failure and stage 1 through stage 4 chronic kidney disease, or unspecified chronic kidney disease; D63.1 Anemia in chronic kidney disease; E03.9 Hypothyroidism, unspecified; E11.22 Type 2 diabetes mellitus with diabetic chronic kidney disease; E11.51 Type 2 diabetes mellitus with diabetic peripheral angiopathy without gangrene; E78.00 Pure hypercholesterolemia, unspecified; E86.0 Dehydration; F31.9 Bipolar disorder, unspecified; F41.1 Generalized anxiety disorder; G89.4 Chronic pain syndrome; I25.10 Atherosclerotic heart disease of native coronary artery without angina pectoris; I50.9 Heart failure, unspecified; E66.01 Morbid (severe) obesity due to excess calories; F41.9 Anxiety disorder, unspecified; K21.9 Gastro-esophageal reflux disease without esophagitis; J44.9 Chronic obstructive pulmonary disease, unspecified; N18.9 Chronic kidney disease, unspecified; R53.81 Other malaise; N31.9 Neuromuscular dysfunction of bladder, unspecified; Z74.01 Bed confinement status; Z79.899 Other long term (current) drug therapy; Z90.49 Acquired absence of other specified parts of digestive tract; Z68.37 Body mass index [BMI] 37.0-37.9, adult; Z88.8 Allergy status to other drugs, medicaments and biological substances; Z88.6 Allergy status to analgesic agent; Z91.041 Radiographic dye allergy status; Z99.81 Dependence on supplemental oxygen
CPT/HCPCS: 36415; 71045; 80048; 80053; 82533; 83605; 83880; 84443; 84484; 85025; 85027; 85379; 86140; 87040; 93005; 99285; J1650; J1940; J2185; Q0169; J7030

== ENCOUNTER 2020-06-27 12:52 | Inpatient (IN) | payer MEDICARE, OTHER ==
[~2020-06-27] VITALS: Ht 160 cm; Wt 78.9 kg
[~2020-06-27 12:52] MED LIST: ALBU2.5V5 NEB; ASCO500C PO; ATORVASTATIN CA80 MG PO; BENZ1LOZ48 PO; CALC500T31 PO; CARV12.5 PO; DIAZ10TA4 PO; DIAZ5TAB4 PO; DIPH25TA26 PO; DOCU-153 PO; DOXY100C2 PO; ESCITALOPRAM OXA5 MG PO; EZET10TA20 PO; FERR325T14 PO; FLUT1DIS5 IH; GABA-586 PO; HYDR100T24 PO; LACT1CAP6 PO; LEVO137T3 PO; LOSA100T14 PO; METH-38 PO; MONT10TA20 PO; MULT-445 PO; NIFE60TA90 PO; NITR0.4T22 SL; NYST60PO TP; ONDA-84 PO; ONDA4TAB12 PO; OXYB-36 PO; OXYC10TA46 PO; OXYC5TAB88 PO; PANT40TA3 PO; PEG15DRO4 EACHEYE; POLY17PO5 PO; POTA20TA4 PO; PROM12.58 PO; PROM25TA10 PO; ZINC220T3 PO; ZIPR40CA2 PO
--- NOTE | 2020-06-27 13:11 | PHYS DOC ---
Past History Past Medical History: Anemia, Anxiety, Bronchitis, CAD, CHF, Constipation, COPD, Depression, Diabetes, Endometriosis, GERD, GI Bleed, Hypertension, Hypothyroid, RI, Pneumonia, P.U.D, URI, UTI, Other Past Surgical History: Appendectomy, Cholecystectomy, Other Alcohol Use: None Drug Use: Opiates Adult General Chief Complaint Chief Complaint: PAIN ON URINATION HPI HPI Patient is a 75-year-old female who presents via EMS from local retirement for hypoactive delirium. Onset was noticed approximately 24 hours ago. Patient has had reported suprapubic pain and gross discoloration in urine that is typically collected from chronic indwelling suprapubic cath. Staff noticed discoloration and gross malodor from patient's urine that was now chunky which is unusual for her. They also noticed patient's mentation had been slowed, she has had fluctuating mentation without any falls, changes in medication, fever, chest pain, shortness of breath, bowel incontinence, motor or sensory function changes or neurologic deficits noted. Patient typically receives all care at [facility] until that closed, she is well known by that facility for having occasional complicated UTIs due to her chronic indwelling catheter. It is not known when this was last changed and/or tubing exchanged etc. Review of Systems Review of Systems Fourteen body systems of review of systems have been reviewed. See HPI for pertinent positives and negative responses, other goldstein all other systems are negative, non-pertinent or non-contributory Allergies Allergies Allergies Coded Allergies Type Severity Reaction Last Updated Verified Iodine and Iodide Containing Produc Allergy Unknown 05/11/17 Yes NSAIDS (Non-Steroidal Anti-Inflamma Allergy Unknown 05/11/17 Yes Penicillins Allergy Unknown 05/11/17 Yes acetaminophen Allergy Unknown 05/11/17 Yes adhesive Allergy Unknown 05/11/17 Yes amitriptyline Allergy Unknown 05/11/17 Yes aspirin Allergy Unknown 05/11/17 Yes butorphanol Allergy Unknown 05/11/17 Yes carbamazepine Allergy Unknown 05/11/17 Yes cefamandole Allergy Unknown 05/11/17 Yes cephalexin Allergy Unknown 05/11/17 Yes chlorpromazine Allergy Unknown 05/11/17 Yes clindamycin Allergy Unknown 05/11/17 Yes codeine Allergy Unknown 05/11/17 Yes diflunisal Allergy Unknown 05/11/17 Yes fenoprofen Allergy Unknown 05/11/17 Yes fentanyl Allergy Unknown 05/11/17 Yes flurazepam Allergy Unknown 05/11/17 Yes gentamicin Allergy Unknown 05/11/17 Yes hydroxyzine Allergy Unknown 05/11/17 Yes ibuprofen Allergy Unknown 05/11/17 Yes ketorolac Allergy Unknown 05/11/17 Yes levofloxacin Allergy Unknown 05/11/17 Yes lorazepam Allergy Unknown 05/11/17 Yes lovastatin Allergy Unknown 05/11/17 Yes meclizine Allergy Unknown 05/11/17 Yes nalbuphine Allergy Unknown 05/11/17 Yes naproxen Allergy Unknown 05/11/17 Yes nepafenac Allergy Unknown 05/11/17 Yes nitrofurantoin Allergy Unknown 05/11/17 Yes pentazocine Allergy Unknown 05/11/17 Yes povidone-iodine Allergy Unknown 05/11/17 Yes propoxyphene Allergy Unknown 05/11/17 Yes soap Allergy Unknown 05/11/17 Yes spironolactone Allergy Unknown 05/11/17 Yes strawberry Allergy Unknown 05/11/17 Yes tomato Allergy Unknown 05/11/17 Yes tramadol Allergy Unknown 05/11/17 Yes trimipramine Allergy Unknown 05/11/17 Yes Physical Exam Physical Exam Constitutional: Well developed, well nourished, no acute distress, appears fatigued HENT: Normocephalic, atraumatic, bilateral external ears normal, oropharynx dry, no oral exudates, nose normal. Eyes: PERRLA, EOMI, conjunctiva normal, no discharge. Neck: Normal range of motion, no tenderness, supple, no stridor. No meningeal signs, negative Kernig and Brudzinski sign Cardiovascular: Heart rate regular, sinus rhythm Lungs & Thorax: No respiratory distress, no accessory muscle use, crackles in bilateral bases Abdomen: Bowel sounds normal, soft, suprapubic tenderness with palpation around area of chronic indwelling cath that has slight wound dehiscence and redness without any streaking, abscess, purulent exudate or other concerning signs of acute infection of stoma. No masses, no pulsatile masses. Nonsurgical abdomen, no peritoneal signs Skin: Warm, dry, no erythema, no rash. Back: No tenderness, no CVA tenderness. Extremities: No tenderness, no cyanosis, no clubbing, ROM intact, no edema. Neurologic: Alert and oriented to person and place only which is unusual for her, cranial nerves II through XII intact, NIH stroke scale 0, normal motor & sensory function, no focal deficits noted. Psychologic: Flat affect, judgement normal, depressed mood Current Patient Data Vital Signs Vital Signs Date Time Temp Pulse Resp B/P (MAP) Pulse Ox O2 Delivery O2 Flow Rate FiO2 06/27/20 12:55 98.1 57 20 92/42 (59) 98 4.0 Vital Signs Date Time Temp Pulse Resp B/P (MAP) Pulse Ox O2 Delivery O2 Flow Rate FiO2 06/27/20 12:55 98.1 57 20 92/42 (59) 98 4.0 Lab Results Laboratory Tests Test 06/27/20 13:17 06/27/20 13:30 06/27/20 14:15 Glucose (Fingerstick) 167 mg/dL White Blood Count 17.1 x10^3/uL Red Blood Count 4.25 x10^6/uL Hemoglobin 12.3 g/dL Hematocrit 35.9 % Mean Corpuscular Volume 85 fL Mean Corpuscular Hemoglobin 29 pg Mean Corpuscular Hemoglobin Concent 34 g/dL Red Cell Distribution Width 12.6 % Platelet Count 184 x10^3/uL Neutrophils (%) (Auto) 83 % Lymphocytes (%) (Auto) 9 % Monocytes (%) (Auto) 7 % Eosinophils (%) (Auto) 1 % Basophils (%) (Auto) 0 % Neutrophils # (Auto) 14.1 x10^3uL Lymphocytes # (Auto) 1.5 x10^3/uL Monocytes # (Auto) 1.3 x10^3/uL Eosinophils # (Auto) 0.2 x10^3/uL Basophils # (Auto) 0.0 x10^3/uL Platelet Estimate Pending Sodium Level 129 mmol/L Potassium Level 2.1 mmol/L Chloride Level 85 mmol/L Carbon Dioxide Level 37 mmol/L Anion Gap 7 Blood Urea Nitrogen 13 mg/dL Creatinine 0.9 mg/dL Estimated GFR (Cockcroft-Gault) 61.0 Glucose Level 142 mg/dL Lactic Acid Level 1.0 mmol/L Calcium Level 8.9 mg/dL Magnesium Level 1.9 mg/dL Urine Collection Type U cath Urine Color Yellow Urine Clarity Turbid Urine pH >8.5 Urine Specific Gillett 1.015 Urine Protein >100 mg/dl Urine Glucose (UA) Neg mg/dL Urine Ketones (Stick) Trace mg/dL Urine Blood Large Urine Nitrite Neg Urine Bilirubin Small Urine Urobilinogen Dipstick 0.2 mg/dL Urine Leukocyte Esterase Large Urine RBC 6-10 /HPF Urine WBC 11-20 /HPF Urine Bacteria Many /HPF Current Medications Medications (Trade) Dose Ordered Sig/Perla Route PRN Reason Start Time Stop Time Status Last Admin Dose Admin Aztreonam 1 gm/ Sodium Chloride 50 ml @ 100 mls/hr 1X ONCE IV 06/27/20 13:15 06/27/20 13:44 DC 06/27/20 14:17 Sodium Chloride 1,000 ml @ 1,000 mls/hr 1X ONCE IV 06/27/20 13:45 06/27/20 14:44 DC 06/27/20 14:16 Sodium Chloride 50 ml @ As Directed STK-MED ONCE .ROUTE 06/27/20 14:10 06/27/20 14:10 DC Aztreonam (Azactam) 1 gm STK-MED ONCE IV 06/27/20 14:10 06/27/20 14:10 DC Potassium Chloride (Klor-Con) 40 meq 1X ONCE PO 06/27/20 15:00 06/27/20 15:01 DC 06/27/20 15:15 Oxycodone HCl (Roxicodone) 5 mg 1X ONCE PO 06/27/20 17:00 06/27/20 17:05 DC EKG EKG EKG ordered and interpreted by myself at 1326 hrs. as sinus rhythm at 59 bpm, prolonged QT and QTC at 502 otherwise unremarkable intervals, left axis deviation, no obvious ischemic findings, no STEMI Radiology/Procedures Radiology/Procedures [] Heart Score C/O Chest Pain: Yes HEART Score for Chest Pain: HEART Score for Chest Pain Response (Comments) Value History Slighlty/Non-Suspicious 0 ECG Nonspecific Repolarizatio 1 Age > 65 2 Risk Factors >3 Risk Factors or Hx CAD 2 Troponin < Normal Limit 0 Total 5 Risk Factors: Risk Factors: DM, Current or recent (<one month) smoker, HTN, HLP, family history of CAD, obesity. Risk Scores: Risk Factors: DM, Current or recent (<one month) smoker, HTN, HLP, family history of CAD, obesity. Course & Med Decision Making Course & Med Decision Making Hypotensive and bradycardic on arrival otherwise afebrile with normal vitals. HPI and physical examination concerning for potential UTI and patient with repo rted fluctuating mentation, likely hypoactive delirium IV access obtained. 1 L IV normal saline administered with improvement in blood pressure. Given extensive history of medication allergies, IV aztreonam was used for UTI treatment. Patient's potassium level also found to be profoundly low, 40 mEq /KDUR administered I reviewed patient case with patient and family member at bedside, I discussed findings of UTI and profound hypokalemia that will require inpatient medical management for treatment. They confirmed patient was full CODE STATUS Contacted hospitalist and reviewed case, I discussed need for hospital admission for continued inpatient medical management of complicated UTI and hypokalemia, Dr. Preist agreed need for admission and accepted patient under his care Updated patient and family member on plan to admit, they were amenable. All questions and concerns addressed prior to your departure to [facility] for admission Critical Care Time This patient required critical care. Due to the fact that the patient required a significant amount of one on one physician - patient contact time, ordering and review of studies, arranging urgent treatment with development of a management plan, evaluation of patients response to treatment with frequent reassessments, and discussions with other providers this patient required 40 minutes of critical care time. Critical care time was indicated due to the inherent instability and/or potential for instability in this patient. The critical care time that is allocated to this patient is above and beyond any time spent on any other billable procedures performed on this patient. Dragon Disclaimer Dragon Disclaimer This electronic medical record was generated, in whole or in part, using a voice recognition dictation system. Departure Departure: Impression: Primary Impression: Complicated UTI (urinary tract infection) Additional Impression: Hypokalemia Disposition: ADMITTED INPT THIS [facility] Admitting Physician: Sheree Priest Condition: STABLE Referrals: RILEY DEWITT (PCP) Problem Qualifiers EUGENIO LERMA DO Jun 27, 2020 13:11
[2020-06-27] MEDS ORDERED: AZTREONAM 1 GM in IV NORMAL SALINE 50ML 50 ML IV ONE (13:15)
[2020-06-27] MEDS ORDERED: IV NORMAL SALINE 1,000ML 1,000 ML IV ONE (13:45)
--- NOTE | 2020-06-27 13:47 | EKG ---
[address] [address] Test Date: 2020-06-27 Test Time: 13:20:00 Pat Name: SARA JOE Department: Room: Gender: F [employer] P[employer] Agent: SAMANTA : 1945 Requested By: EUGENIO LERMA Order Number: [id number] Reading MD: Measurements Intervals [place] Rate: 59 P: -1 WV: 150 QRS: -21 QRSD: 102 T: 28 QT: 502 QTc: 502 Interpretive Statements SINUS RHYTHM LEFTWARD AXIS R-S TRANSITION ZONE IN V LEADS DISPLACED TO THE LEFT LVH WITH REPOLARIZATION ABNORMALITY PROLONGED QT ABNORMAL ECG RI6.02 No previous ECG available for comparison
[2020-06-27] MEDS ORDERED: AZTREONAM 1 GM VIAL. IV ONE (14:10)
[2020-06-27] MEDS ORDERED: IV NORMAL SALINE 50ML 50 ML ONE (14:10)
[2020-06-27 14:15] LABS: CALCIUM 8.9 mg/dL (8.5-10.1); CREATININE 0.9 mg/dL (0.6-1.0)
[2020-06-27 14:17] LABS: BASO % 0 % (0-3); EOS # 0.2 x10^3/uL (0.0-0.7); EOS % 1 % (0-3); HEMATOCRIT 35.9 % (36.0-47.0); HEMOGLOBIN 12.3 g/dL (12.0-15.5); LYMPH # 1.5 x10^3/uL (1.0-4.8); LYMPH % 9 % (24-48); MEAN CORPUSCULAR HEMOGLOBIN 29 pg (25-35); MEAN CORPUSCULAR HGB CONC 34 g/dL (31-37); MEAN CORPUSCULAR VOLUME 85 fL (79-100); MONO # 1.3 x10^3/uL (0.0-1.1); MONO % 7 % (0-9); NEUT # 14.1 x10^3uL (1.8-7.7); NEUT % 83 % (31-73); PLATELET COUNT 184 x10^3/uL (140-400); RED BLOOD COUNT 4.25 x10^6/uL (3.50-5.40); RED CELL DISTRIBUTION WIDTH 12.6 % (11.5-14.5); WHITE BLOOD COUNT 17.1 x10^3/uL (4.0-11.0)
[2020-06-27 14:28] LABS: POTASSIUM 2.1 mmol/L (3.5-5.1)
[2020-06-27] MEDS ORDERED: POTASSIUM CHLORIDE 10 MEQ TABLET.ER. PO ONE (15:00)
[2020-06-27 15:56] LABS: BILIRUBIN,URINE SMALL (NEG); CLARITY,URINE TURBID; COLOR,URINE YELLOW; GLUCOSE,URINE NEG (NEG)
[2020-06-27 15:57] LABS: NITRITE,URINE NEG (NEG); UROBILINOGEN,URINE 0.2 mg/dL (0.2 mg/dL)
[2020-06-27 16:22] LABS: BACTERIA,URINE MANY /HPF (0-FEW)
[2020-06-27] MEDS ORDERED: oxyCODONE IR 5 MG TABLET PO ONE (17:00)
[2020-06-27 18:11] LABS: % LYMPHS 11 % (24-48); % MONOS 4 % (0-10); % SEGS 85 % (35-66)
[2020-06-27 18:12] LABS: PLT ESTIMATE ADEQUATE (ADEQUATE)
--- NOTE | 2020-06-27 18:36 | NUR ---
The patient, SARA JOE, 75 y/o, F admitted by CHRIS MURPHY MD, was given written information regarding hospital policies, unit procedures and contact persons. Valuables were checked and left with patient at bedside. Pt is A & O x 4 and vital signs are stable at this time.
[2020-06-27 18:47] VITALS: BP 122/64
[2020-06-27] MEDS ORDERED: NITROGLYCERIN SUBLINGUAL 0.4 MG BOTTLE OF 25. SL PRN (19:30)
[2020-06-27] MEDS ORDERED: OXYBUTYNIN CHLORIDE 5 MG TABLET PO PRN (19:30)
[2020-06-27] MEDS ORDERED: NYSTATIN TOPICAL POWDER 15GM BOTTLE. TP PRN (19:30)
[2020-06-27] MEDS ORDERED: POLYETHYLENE GLYCOL 3350 17 GM PACKET. PO PRN (19:30)
[2020-06-27] MEDS ORDERED: LACT1CAP29 PO (19:45)
[2020-06-27] MEDS ORDERED: MULT-445 PO (19:45)
[2020-06-27] MEDS ORDERED: NIFE90TA8 PO (19:45)
[2020-06-27] MEDS ORDERED: EZET10TA20 PO (19:45)
[2020-06-27] MEDS ORDERED: ESCITALOPRAM OX20 MG PO (19:45)
[2020-06-27] MEDS ORDERED: SODI650T PO (19:45)
[2020-06-27] MEDS ORDERED: OXYB5TAB10 PO (19:45)
[2020-06-27] MEDS ORDERED: LEVO137T3 PO (19:45)
[2020-06-27] MEDS ORDERED: FLUT1DIS5 IH (19:45)
[2020-06-27] MEDS ORDERED: POLY17PO5 PO (19:45)
[2020-06-27] MEDS: ZIPRASIDONE 60 MG CAPSULE. PO SCH (20:51)
[2020-06-27] MEDS: oxyCODONE ER 10 MG TAB.ER.12H PO SCH (20:51)
[2020-06-27] MEDS: POTASSIUM CL 40MEQ IN 0.9%NACL 1,000 ML IV SCH (20:52)
[2020-06-27] MEDS: SODIUM BICARBONATE 650 MG TABLET PO SCH (21:00)
[2020-06-27] MEDS ORDERED: NON FORMULARY ITEM (Fluticasone/Salmeterol (Advair 500-50 Diskus) 1 EACH) IH SCH (21:00)
[2020-06-27] MEDS: POLYVINYL ALCOHOL 1.4% OPHTH SOLUTION 15ML BOTTLE. OU SCH (21:00)
[2020-06-27] MEDS: AZTREONAM 1 GM in IV NORMAL SALINE 50ML 50 ML IV SCH (22:24)
[2020-06-28] MEDS: oxyCODONE IR 5 MG TABLET PO PRN ×3 (04:44→19:02)
[2020-06-28] MEDS ORDERED: ALBUTEROL SULFATE 2.5 MG/3 ML NEBU. ONE (04:58)
[2020-06-28] MEDS ORDERED: BUDESONIDE 0.5 MG/2 ML NEBU ONE (04:59)
[2020-06-28] MEDS: ALBUTEROL SULFATE 2.5 MG/3 ML NEBU. NEB SCH ×4 (05:01→20:29)
[2020-06-28] MEDS: BUDESONIDE 0.5 MG/2 ML NEBU NEB SCH ×2 (05:01→20:29)
[2020-06-28] MEDS: AZTREONAM 1 GM in IV NORMAL SALINE 50ML 50 ML IV SCH ×3 (05:26→21:45)
[2020-06-28] MEDS: LEVOTHYROXINE 137 MCG TABLET PO SCH (05:34)
[2020-06-28] MEDS: LEVOTHYROXINE 25 MCG TABLET. PO SCH (05:35)
[2020-06-28 06:35] LABS: BASO # 0.1 x10^3/uL (0.0-0.2); BASO % 1 % (0-3); EOS # 0.2 x10^3/uL (0.0-0.7); EOS % 2 % (0-3); HEMATOCRIT 32.1 % (36.0-47.0); HEMOGLOBIN 10.9 g/dL (12.0-15.5); LYMPH # 1.1 x10^3/uL (1.0-4.8); LYMPH % 10 % (24-48); MEAN CORPUSCULAR HEMOGLOBIN 29 pg (25-35); MEAN CORPUSCULAR HGB CONC 34 g/dL (31-37); MEAN CORPUSCULAR VOLUME 85 fL (79-100); MONO % 9 % (0-9); NEUT # 8.9 x10^3uL (1.8-7.7); NEUT % 78 % (31-73); PLATELET COUNT 151 x10^3/uL (140-400); RED BLOOD COUNT 3.76 x10^6/uL (3.50-5.40); RED CELL DISTRIBUTION WIDTH 12.4 % (11.5-14.5); WHITE BLOOD COUNT 11.4 x10^3/uL (4.0-11.0)
[2020-06-28 06:37] VITALS: BP 138/80
[2020-06-28 06:51] LABS: ALBUMIN 2.7 g/dL (3.4-5.0); ALBUMIN/GLOBULIN RATIO 0.8 (1.0-1.7); CALCIUM 8.3 mg/dL (8.5-10.1); CREATININE 0.6 mg/dL (0.6-1.0); GFR 97.5; TOTAL BILIRUBIN 0.4 mg/dL (0.2-1.0); TOTAL PROTEIN 6.1 g/dL (6.4-8.2)
[2020-06-28] MEDS: PANTOPRAZOLE 40 MG TABLET. PO SCH (07:17)
[2020-06-28 07:18] LABS: POTASSIUM 2.5 mmol/L (3.5-5.1)
[2020-06-28] MEDS: POTASSIUM CL 40MEQ IN 0.9%NACL 1,000 ML IV SCH ×2 (07:18→16:54)
[2020-06-28] MEDS ORDERED: POTASSIUM CHLORIDE 20 MEQ TABLET.ER. PO ONE ×3 (08:00→16:15)
[2020-06-28] MEDS: POLYETHYLENE GLYCOL 3350 17 GM PACKET. PO SCH (09:00)
[2020-06-28] MEDS: oxyCODONE ER 10 MG TAB.ER.12H PO SCH ×2 (09:03→20:57)
[2020-06-28] MEDS: EZETIMIBE 10 MG TABLET PO SCH (09:03)
[2020-06-28] MEDS: CITALOPRAM 20 MG TABLET. PO SCH (09:03)
[2020-06-28] MEDS: MULTIVITAMIN with MINERAL TABLET. PO SCH (09:03)
[2020-06-28] MEDS: LACTOBACILLUS RHAMNOSUS GG 1 CAPSULE. PO SCH (09:03)
[2020-06-28] MEDS: POLYVINYL ALCOHOL 1.4% OPHTH SOLUTION 15ML BOTTLE. OU SCH ×4 (09:13→20:57)
[2020-06-28] MEDS: SODIUM BICARBONATE 650 MG TABLET PO SCH ×2 (09:13→20:57)
[2020-06-28 11:02] VITALS: BP 125/86
[2020-06-28 15:30] VITALS: BP 130/86
--- NOTE | 2020-06-28 17:18 | NUR ---
pt reports continuing pain and requesting pain medication RN educated pt on the time for pain medication. will continue to monitor .
--- NOTE | 2020-06-28 18:00 | HP ---
ADMIT DATE: 06/27/2020 HISTORY OF PRESENT ILLNESS: The patient is a 75-year-old female patient, a resident at [facility] and [facility], who was brought to the Emergency Department from this local residential for hypoactive delirium. The patient has suprapubic pain and gross discoloration of her urine that is typically collected from chronic indwelling suprapubic catheter. Staff noticed discoloration and gross malodorous urine that was now chunky which is unusual for her. They also noticed the patient's mentation has been slowed down and has been fluctuating mentation without any falls, change in medication, fever, chest pain, shortness of breath and bowel incontinence. The patient typically receives all her care at [facility] until that closed and she is well known by that facility for having occasional complicated UTI due to her chronic indwelling catheter. She was extensively investigated in the Emergency Room and she was found to have leukocytosis. Her chemistry showed serum sodium of 129. Her potassium was extremely low at 2.1 and therefore, the patient was admitted to take care of her, was treated with aztreonam for urinary tract infection and also started on normal saline with 40 mEq of potassium chloride to correct her sodium and potassium. 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 PAST SURGICAL HISTORY: Significant for suprapubic catheter placement. ALLERGIES: SHE HAS EXTENSIVE LIST OF ALLERGIES LISTED IN HER CHART AND TOO NUMEROUS TO ACTUALLY EVEN COUNT. FAMILY HISTORY: Noncontributory. SOCIAL HISTORY: She lives at [facility]. She does not smoke, drink alcohol or use any recreational drugs. She is mostly bedbound. She requires a Mary lift for transfers. REVIEW OF SYSTEMS: As per history of present illness. PHYSICAL EXAMINATION: GENERAL: On arrival to the Emergency Room, the patient looked well and was clearly in no apparent respiratory distress. She was slightly pale, but no jaundice, cyanosis or thyromegaly. No jugular venous distention. No lower limb edema. VITAL SIGNS: Her heart rate was 57, blood pressure was 92/42, temperature was 98.1, respiratory rate was 20, and oxygen saturation was 98% on 4 liters of oxygen. HEAD, EYES, EARS, NOSE AND THROAT: Showed normocephalic and atraumatic. NECK: Supple. HEART: Showed normal first and second heart sounds. No gallop, rub or murmur. CHEST: Clear to auscultation. No crepitation or rhonchi. ABDOMEN: Distended, soft with suprapubic catheter in place. There is no guarding or rigidity. No organomegaly. All hernial orifice intact. Bowel sounds normal. NEUROLOGIC: She is awake, alert, responding appropriately. All her cranial nerves intact. She moves upper extremities ____. The patient has functional ____. She is mostly bedbound. She requires Mary lift for transfer. LABORATORY DATA: Her lab work on admission showed a white cell count 17,100; hemoglobin 12.3; hematocrit 36; MCV 85 and platelet count of 184,000. Her chemistry showed a serum sodium of 129, potassium 2.1, chloride 85, bicarbonate 37, anion gap of 7, BUN 13, creatinine was 0.9, estimated GFR was 61 mL per minute. Her glucose was 142, calcium was 8.9, lactic acid was 1 and magnesium was 1.9. Her D-dimer was not done. Urinalysis showed the urine was yellow, turbid with a pH of 8.5, specific gravity of 1.015. There was large amount of protein, negative for glucose, trace of ketones, large amount of blood, small amount of bilirubin, negative for nitrite, large amount of leukocyte esterase, ___ many bacteria. Her blood and urine were sent for culture and sensitivity and her blood cultures have shown no growth after one day. Her gram-stain showed growth of gram-positive cocci; however, the identification and sensitivity is still pending at the time of this dictation. ASSESSMENT AND PLAN: In summary, this is a 75-year-old female patient, resident at [facility] and [facility], who was admitted with altered mental status, was found to have urinary tract infection. She was also found to have profound hypokalemia and mild hyponatremia. We did start her on aztreonam, given the extensive list of allergies and IV fluid in the form of normal saline with 40 mEq of potassium chloride. We will repeat all her lab work and adjust her antibiotic according to the sensitivities. CHRIS MURPHY MD DR: GRAHAM/marbin JOB#: [id number] / [id number]
[2020-06-28 18:59] VITALS: BP 115/58
[2020-06-28 19:41] LABS: CALCIUM 8.4 mg/dL (8.5-10.1); CREATININE 0.7 mg/dL (0.6-1.0); GFR 81.6; POTASSIUM 4.6 mmol/L (3.5-5.1)
[2020-06-28] MEDS: ZIPRASIDONE 60 MG CAPSULE. PO SCH (20:57)
[2020-06-28 22:58] VITALS: BP 95/61
[2020-06-29] MEDS: POTASSIUM CL 40MEQ IN 0.9%NACL 1,000 ML IV SCH ×3 (03:29→20:45)
[2020-06-29] MEDS: ALBUTEROL SULFATE 2.5 MG/3 ML NEBU. NEB SCH ×4 (05:13→20:15)
[2020-06-29] MEDS: LEVOTHYROXINE 137 MCG TABLET PO SCH (05:20)
[2020-06-29] MEDS: LEVOTHYROXINE 25 MCG TABLET. PO SCH (05:20)
[2020-06-29 05:52] LABS: HEMATOCRIT 29.9 % (36.0-47.0); HEMOGLOBIN 10.2 g/dL (12.0-15.5); RED BLOOD COUNT 3.46 x10^6/uL (3.50-5.40); RED CELL DISTRIBUTION WIDTH 12.7 % (11.5-14.5); WHITE BLOOD COUNT 7.8 x10^3/uL (4.0-11.0)
[2020-06-29] MEDS: AZTREONAM 1 GM in IV NORMAL SALINE 50ML 50 ML IV SCH ×3 (05:58→22:23)
[2020-06-29 06:05] LABS: ALBUMIN 2.6 g/dL (3.4-5.0); ALBUMIN/GLOBULIN RATIO 0.8 (1.0-1.7); CALCIUM 8.4 mg/dL (8.5-10.1); CREATININE 0.6 mg/dL (0.6-1.0); GFR 97.5; POTASSIUM 4.7 mmol/L (3.5-5.1); TOTAL BILIRUBIN 0.2 mg/dL (0.2-1.0)
[2020-06-29 06:31] VITALS: BP 90/62
[2020-06-29] MEDS: oxyCODONE IR 5 MG TABLET PO PRN ×2 (06:41→15:35)
[2020-06-29] MEDS: PANTOPRAZOLE 40 MG TABLET. PO SCH (07:25)
--- NOTE | 2020-06-29 09:26 | PN ---
DATE: 06/28/2020 SUBJECTIVE: The patient is sitting slightly propped up in bed, in no apparent respiratory distress. She is definitely more awake, alert, responding appropriately. On questioning her, denied any complaint. The nursing staff did not voice any concern and stated that she has an uneventful night. PHYSICAL EXAMINATION: GENERAL: When I examined her, she looked pale, no jaundice, cyanosis or thyromegaly. No jugular venous distention. No lower limb edema. VITAL SIGNS: Her heart rate was 66, blood pressure was 125/86, temperature was 98.8, respiratory rate 20, and oxygen saturation was 100% on 3 liters of oxygen. HEAD, EYES, EARS, NOSE AND THROAT: Showed normocephalic, atraumatic. NECK: Supple. HEART: Showed normal first and second heart sounds with no gallop, rub or murmur. CHEST: Clear to auscultation. No crepitation or rhonchi. ABDOMEN: Distended, soft. Suprapubic catheter in place. NEUROLOGIC: She is awake, alert, responding appropriately. All cranial nerves intact. She has functional paraplegia. She is mostly bedbound. She has a Mary lift. She has an indwelling Daly catheter. Her intake and output are incompletely recorded. LABORATORY DATA: Her lab work this morning showed a white cell count is down to 11,400, hemoglobin 11, hematocrit 32, MCV 85, platelet count of 151,000. Her chemistry showed sodium is down to 127, potassium 2.5, chloride 90, bicarbonate 32, anion gap of 5, BUN 10, creatinine 0.6, estimated GFR was 97 mL per minute. Her glucose was 117, calcium was 8.3. Total bilirubin, AST, ALT, alkaline phosphatase were normal. Total protein 6.1, albumin was 2.7. ASSESSMENT: This is a 75-year-old male patient, a resident at [facility] was admitted with: 1. Altered mental status. 2. New urinary tract infection. 3. Profound hypokalemia and mild hyponatremia. PLAN: To continue with IV fluid in the form of normal saline with 40 mEq of potassium chloride. We will replenish potassium orally. Continue with aztreonam and repeat all her lab work again tomorrow. CHRIS MURPHY MD DR: GRAHAM/marbin JOB#: [id number] / [id number]
[2020-06-29] MEDS: CITALOPRAM 20 MG TABLET. PO SCH (09:31)
[2020-06-29] MEDS: EZETIMIBE 10 MG TABLET PO SCH (09:31)
[2020-06-29] MEDS: LACTOBACILLUS RHAMNOSUS GG 1 CAPSULE. PO SCH (09:31)
[2020-06-29] MEDS: POLYVINYL ALCOHOL 1.4% OPHTH SOLUTION 15ML BOTTLE. OU SCH ×4 (09:31→20:59)
[2020-06-29] MEDS: MULTIVITAMIN with MINERAL TABLET. PO SCH (09:31)
[2020-06-29] MEDS: SODIUM BICARBONATE 650 MG TABLET PO SCH ×2 (09:32→20:57)
[2020-06-29] MEDS: BUDESONIDE 0.5 MG/2 ML NEBU NEB SCH ×2 (09:32→20:15)
[2020-06-29] MEDS: oxyCODONE ER 10 MG TAB.ER.12H PO SCH ×2 (09:34→20:58)
[2020-06-29] MEDS: POLYETHYLENE GLYCOL 3350 17 GM PACKET. PO SCH (09:34)
[2020-06-29 11:31] VITALS: BP 181/72
[2020-06-29 16:58] VITALS: BP 174/54
--- NOTE | 2020-06-29 17:22 | NUR ---
Nursing note pt resting comfortably.
[2020-06-29 19:43] VITALS: BP 134/83
[2020-06-29 20:44] VITALS: BP 170/95
[2020-06-29] MEDS: ZIPRASIDONE 60 MG CAPSULE. PO SCH (20:57)
--- NOTE | 2020-06-30 00:14 | PN ---
DATE: 06/29/2020 SUBJECTIVE: The patient is resting, slightly propped up in bed, in no apparent respiratory distress. On questioning her, denied any complaint; however, nursing staff stated that she is very extremely anxious and agitated; however, she is afebrile. PHYSICAL EXAMINATION: GENERAL: When I examined her, she was pale, but no jaundiced, cyanosed or thyromegaly. No jugular venous distension. No lower limb edema. VITAL SIGNS: Her heart rate was 62, blood pressure was 181/72, temperature was 97.8, respiratory rate was 17 and oxygen saturation was 98% on 3 liters of oxygen. HEAD, EYES, EARS, NOSE AND THROAT: Showed normocephalic, atraumatic. NECK: Supple. HEART: Showed normal first and second heart sounds. No gallop, rub or murmur. CHEST: Clear to auscultation. No crepitation or rhonchi. ABDOMEN: Distended, soft, nontender. No guarding or rigidity. No organomegaly. All hernial orifice intact. Bowel sounds normal. She has a suprapubic catheter in place. NEUROLOGIC: She is awake, alert, responding appropriately. All cranial nerves are intact. She moves upper extremities without difficulty. She has functional paraplegia. She has a suprapubic catheter in place. She requires Mary lift for transfer. Her intake was 600, output was 500. LABORATORY DATA: Showed her white cell count is down to 7,800, hemoglobin 10, hematocrit 30, MCV 87, and platelet count of 144,000. Her chemistry showed her sodium has almost normalized at 133, potassium 4.7, chloride 100, bicarbonate 30, anion gap of 3, BUN 8, creatinine 0.6. Estimated GFR was 97 mL per minute. Her glucose 127, calcium was 8.4. Total bilirubin, AST, ALT, alkaline phosphatase were normal. Total protein 6, albumin was 2.6. ASSESSMENT: 1. Altered mental status, resolved. 2. New urinary tract infection with growth of multiple organisms including Staphylococcus aureus, Proteus mirabilis and Corynebacterium striatum. 3. Profound hypokalemia and mild hyponatremia, resolved. Her sodium is up to 133, potassium 4.9. 4. She has multiple other medical problems including: A. Hypothyroidism. B. Morbid obesity and obstructive sleep apnea. C. Neurogenic bladder requiring Daly catheter. D. Major depression. E. Chronic pain syndrome. F. Chronic obstructive pulmonary disease. PLAN: To continue with aztreonam. I spoke with the lab at [facility] and their measuring sensitivities to both Staphylococcus aureus as well the Proteus mirabilis. CHRIS MURPHY MD DR: GRAHAM/marbin JOB#: [id number] / [id number]
[2020-06-30] MEDS: LEVOTHYROXINE 137 MCG TABLET PO SCH (05:01)
[2020-06-30] MEDS: LEVOTHYROXINE 25 MCG TABLET. PO SCH (05:01)
[2020-06-30] MEDS: oxyCODONE IR 5 MG TABLET PO PRN ×2 (05:02→14:29)
[2020-06-30] MEDS: AZTREONAM 1 GM in IV NORMAL SALINE 50ML 50 ML IV SCH ×2 (05:02→12:46)
[2020-06-30] MEDS: ALBUTEROL SULFATE 2.5 MG/3 ML NEBU. NEB SCH ×3 (05:19→15:03)
[2020-06-30 06:17] VITALS: BP 186/83
[2020-06-30 06:21] LABS: CALCIUM 8.6 mg/dL (8.5-10.1); CREATININE 0.6 mg/dL (0.6-1.0); GFR 97.5; POTASSIUM 4.1 mmol/L (3.5-5.1)
[2020-06-30] MEDS: LACTOBACILLUS RHAMNOSUS GG 1 CAPSULE. PO SCH (08:05)
[2020-06-30] MEDS: oxyCODONE ER 10 MG TAB.ER.12H PO SCH (08:05)
[2020-06-30] MEDS: EZETIMIBE 10 MG TABLET PO SCH (08:05)
[2020-06-30] MEDS: PANTOPRAZOLE 40 MG TABLET. PO SCH (08:05)
[2020-06-30] MEDS: CITALOPRAM 20 MG TABLET. PO SCH (08:05)
[2020-06-30] MEDS: MULTIVITAMIN with MINERAL TABLET. PO SCH (08:05)
[2020-06-30] MEDS: POLYETHYLENE GLYCOL 3350 17 GM PACKET. PO SCH (08:06)
[2020-06-30] MEDS: SODIUM BICARBONATE 650 MG TABLET PO SCH (08:06)
[2020-06-30] MEDS: POLYVINYL ALCOHOL 1.4% OPHTH SOLUTION 15ML BOTTLE. OU SCH ×2 (08:06→13:00)
[2020-06-30] MEDS: BUDESONIDE 0.5 MG/2 ML NEBU NEB SCH (09:26)
--- NOTE | 2020-06-30 12:45 | DS ---
DATE OF DISCHARGE: ATTENDING PHYSICIANS: Dr. Priest and Dr. Black. FINAL DISCHARGE DIAGNOSES: 1. Urinary tract infection, multi-bacterial. 2. Chronically indwelling Daly catheter. 3. Altered mentation, resolved. 4. Dehydration, rehydrated. 5. Chronic pain syndrome. 6. Hypothyroidism, on replacement. 7. Morbid obesity. 8. Obstructive sleep apnea. 9. Neurogenic bladder. 10. Chronic pain syndrome. 11. Chronic obstructive pulmonary disease. HISTORY AND PHYSICAL: The patient is a 75-year-old resident of [facility], well known to us from previous admissions. She came in with obtundation and altered mentation due to UTI. PHYSICAL EXAMINATION: Please see the dictated note. PERTINENT LABORATORY AND X-RAY STUDIES: On admission, her hemoglobin was 12.3 g/dL, white count 17,000 and repeated was down to 7800. Electrolytes: Sodium 127, replaced to 133 mEq/L, potassium 2.5 mEq, replaced up to 4.7 mEq per liter. Sugars were adequate. Transaminases and liver function was normal, creatinine 0.6 mg/dL. Blood cultures were negative at 48 hours; however, urine culture was indeed positive for Staphylococcus aureus and Proteus mirabilis, sensitivities to quinolones and ceftriaxone. The patient was admitted, started on aztreonam. She did fairly well clinically. Home meds were continued. Sugars were adequate and her pain was managed. By the fourth hospital day, the cultures came back and it was sensitive to quinolones. I recommended 7 more days of Levaquin 500 mg p.o. daily and the addition of doxycycline 100 mg p.o. b.i.d. for 7 more days and then stop. Her other home meds are unchanged. She will continue her scheduled OxyContin 10 mg b.i.d. with 5 mg of oxycodone for breakthrough pain. In addition, she will continue her scheduled Synthroid dose as well as Coreg 12.5 mg b.i.d., Lexapro, Zetia, fluticasone, lactobacillus, losartan, nitroglycerin, nifedipine, oxybutynin, nystatin, MiraLax, Protonix, sodium bicarbonate and Geodon dose is unchanged. Her prognosis is guarded. She was then discharged from our hospital in stable condition with explicit instructions and followup care. Total discharge time spent 39 minutes. DIANE BLACK MD DR: ASHLEY/marbin JOB#: [id number] / [id number] CHRIS Mina MD
--- NOTE | 2020-06-30 17:15 | NUR ---
Pt left wheelchair van, report given to Mary at [facility]. Pt alert x3, vital signs stable. Only belonging is a nightgown.
== END 2020-06-30 17:25 | DRG 871 ==
LOC: ER 12:52 → 1 SOUTH 15:30 → ER 18:15 → ICU 06-29 06:30
PROVIDERS: ADMIT Internal Medicine; ATTEND Internal Medicine
DX: A41.9 Sepsis, unspecified organism (principal); E43 Unspecified severe protein-calorie malnutrition; N39.0 Urinary tract infection, site not specified; E87.1 Hypo-osmolality and hyponatremia; I13.0 Hypertensive heart and chronic kidney disease with heart failure and stage 1 through stage 4 chronic kidney disease, or unspecified chronic kidney disease; E03.9 Hypothyroidism, unspecified; E11.22 Type 2 diabetes mellitus with diabetic chronic kidney disease; E11.51 Type 2 diabetes mellitus with diabetic peripheral angiopathy without gangrene; E66.01 Morbid (severe) obesity due to excess calories; E78.00 Pure hypercholesterolemia, unspecified; E86.0 Dehydration; E87.6 Hypokalemia; F31.9 Bipolar disorder, unspecified; F41.1 Generalized anxiety disorder; G47.33 Obstructive sleep apnea (adult) (pediatric); G89.4 Chronic pain syndrome; I25.10 Atherosclerotic heart disease of native coronary artery without angina pectoris; I50.9 Heart failure, unspecified; J44.9 Chronic obstructive pulmonary disease, unspecified; N18.9 Chronic kidney disease, unspecified; K21.9 Gastro-esophageal reflux disease without esophagitis; B96.4 Proteus (mirabilis) (morganii) as the cause of diseases classified elsewhere; B95.61 Methicillin susceptible Staphylococcus aureus infection as the cause of diseases classified elsewhere; N31.9 Neuromuscular dysfunction of bladder, unspecified; Z90.49 Acquired absence of other specified parts of digestive tract; Z88.0 Allergy status to penicillin; Z88.8 Allergy status to other drugs, medicaments and biological substances; Z88.6 Allergy status to analgesic agent; Z88.1 Allergy status to other antibiotic agents; Z91.041 Radiographic dye allergy status; Z68.30 Body mass index [BMI] 30.0-30.9, adult
CPT/HCPCS: 36415; 80048; 80053; 81001; 82947; 83605; 83735; 85007; 85025; 85027; 87040; 87070; 87077; 87086; 87186; 93005; 94640; 96365; 96375; J3490; 97530; 99291-25; J7030; J7613

== ENCOUNTER 2021-03-16 08:00 | Emergency (ER) | payer MEDICARE, OTHER ==
[~2021-03-16] VITALS: Ht 160 cm; Wt 78.9 kg
[~2021-03-16 08:00] MED LIST changes: +DOCU-148 PO; -DOCU-153 PO; -DOXY100C2 PO; +DOXY100C3 PO; +ESCITALOPRAM OX20 MG PO; +LACT1CAP37 PO; +MONT-38 PO; -MONT10TA20 PO; +NIFE90TA8 PO; +OXYB5TAB10 PO; -PEG15DRO4 EACHEYE; +PEG15DRO6 EACHEYE; +SODI650T PO
[2021-03-16] MEDS ORDERED: IV NORMAL SALINE 1,000ML 1,000 ML IV ONE (08:15)
--- NOTE | 2021-03-16 08:22 | PHYS DOC ---
Past History Past Medical History: Anemia, Anxiety, Bronchitis, CAD, CHF, Constipation, COPD, Depression, Diabetes, Endometriosis, GERD, GI Bleed, Hypertension, Hypothyroid, PR, Pneumonia, P.U.D, URI, UTI, Other Past Surgical History: Appendectomy, Cholecystectomy, Other Additional Past Surgical Histo: supepubic cath Alcohol Use: None Drug Use: Opiates General Adult EDM: Chief Complaint: SHORTNESS OF BREATH HPI: HPI: 75-year-old female presents via EMS for worsening shortness of breath. Patient tells me she has been feeling more short of breath for at least a couple of days. She is on 4 L nasal cannula at baseline. A chest x-ray was performed at her care facility yesterday and she was found to have pneumonia. She was placed on oral antibiotic. She seemed to have a worsening shortness of breath this morning so they called EMS. She was reported to be requiring 6 L nasal cannula to maintain her oxygen saturation prior to arrival. Review of Systems: Review of Systems: Constitutional: Denies fever or chills Eyes: Denies change in visual acuity HENT: Denies nasal congestion or sore throat Respiratory: Cough with shortness of breath Cardiovascular: Denies chest pain or edema GI: Denies abdominal pain, nausea, vomiting, bloody stools or diarrhea : Denies dysuria Musculoskeletal: Denies back pain or joint pain Integument: Denies rash Neurologic: Denies headache, focal weakness or sensory changes Endocrine: Denies polyuria or polydipsia Lymphatic: Denies swollen glands Psychiatric: Denies depression or anxiety Current Medications: Current Meds: Current Medications Medications (Trade) Dose Ordered Sig/Perla Start Time Stop Time Status Last Admin Dose Admin Sodium Chloride 1,000 ml @ 1,000 mls/hr 1X ONCE 03/16/21 08:15 03/16/21 09:14 Allergies: Allergies: Allergies Coded Allergies Type Severity Reaction Last Updated Verified Iodine and Iodide Containing Produc Allergy Unknown 06/27/20 Yes NSAIDS (Non-Steroidal Anti-Inflamma Allergy Unknown 06/27/20 Yes Penicillins Allergy Unknown 06/27/20 Yes acetaminophen Allergy Unknown 06/27/20 Yes adhesive Allergy Unknown 06/27/20 Yes amitriptyline Allergy Unknown 06/27/20 Yes aspirin Allergy Unknown 06/27/20 Yes butorphanol Allergy Unknown 06/27/20 Yes carbamazepine Allergy Unknown 06/27/20 Yes cefamandole Allergy Unknown 06/27/20 Yes cephalexin Allergy Unknown 06/27/20 Yes chlorpromazine Allergy Unknown 06/27/20 Yes clindamycin Allergy Unknown 06/27/20 Yes codeine Allergy Unknown 06/27/20 Yes diflunisal Allergy Unknown 06/27/20 Yes fenoprofen Allergy Unknown 06/27/20 Yes fentanyl Allergy Unknown 06/27/20 Yes flurazepam Allergy Unknown 06/27/20 Yes gentamicin Allergy Unknown 06/27/20 Yes hydroxyzine Allergy Unknown 06/27/20 Yes ibuprofen Allergy Unknown 06/27/20 Yes ketorolac Allergy Unknown 06/27/20 Yes levofloxacin Allergy Unknown 06/27/20 Yes lorazepam Allergy Unknown 06/27/20 Yes lovastatin Allergy Unknown 06/27/20 Yes meclizine Allergy Unknown 06/27/20 Yes nalbuphine Allergy Unknown 06/27/20 Yes naproxen Allergy Unknown 06/27/20 Yes nepafenac Allergy Unknown 06/27/20 Yes nitrofurantoin Allergy Unknown 06/27/20 Yes pentazocine Allergy Unknown 06/27/20 Yes povidone-iodine Allergy Unknown 06/27/20 Yes propoxyphene Allergy Unknown 06/27/20 Yes soap Allergy Unknown 06/27/20 Yes spironolactone Allergy Unknown 06/27/20 Yes strawberry Allergy Unknown 06/27/20 Yes tomato Allergy Unknown 06/27/20 Yes tramadol Allergy Unknown 06/27/20 Yes trimipramine Allergy Unknown 06/27/20 Yes Physical Exam: PE: Constitutional: Well developed, well nourished, obese, no acute distress, non- toxic appearance. [] HENT: Normocephalic, atraumatic, bilateral external ears normal, oropharynx moist, no oral exudates, nose normal. Hard of hearing. [] Eyes: PERRLA, EOMI, conjunctiva normal, no discharge. [] Neck: Normal range of motion, no tenderness, supple, no stridor. [] Cardiovascular: Heart rate 81, regular rhythm, no murmur [] Lungs & Thorax: Bilateral breath sounds coarse, worse on the left [] Abdomen: Bowel sounds normal, soft, no tenderness, no masses, no pulsatile masses. [] Skin: Warm, dry, no erythema, no rash. [] Back: No tenderness, no CVA tenderness. [] Extremities: No tenderness, no cyanosis, no clubbing, ROM intact, no edema. [] Neurologic: Alert and oriented X 3, normal motor function, normal sensory function, no focal deficits noted. [] Psychologic: Affect normal, judgement normal, mood normal. [] EKG: EKG: Sinus rhythm, rate 81, normal axis, no ST elevation or depression. [] Radiology/Procedures: Radiology/Procedures: [] Impressions: INDICATION: Reason: SOB / Spl. Instructions: / History: COMPARISON: March 08, 2020 FINDINGS: Single view of chest obtained. Cardiac silhouette is prominent in size. Blunting of the left costophrenic angle with focal airspace opacity at the left lung. Linear opacity at the right lower lung. Degenerative changes spine Fullness of pulmonary [place]. IMPRESSION: * Increased opacity within the left lung which could be from airspace consolidation with a component of pleural effusion also possible. * Mild linear opacity at the right lower lung could be from atelectasis or infiltrate. Follow-up could be obtained to ensure that these findings resolve to exclude any persistent nodule. Electronically signed by: Juan Cuba MD (03/16/2021 9:24 AM) [id number] DICTATED AND SIGNED BY: JUAN CUBA MD DATE: 03/16/21916 CC: MURALI MAHAJAN DO; JOSE WATKINS DO ~MTH0 0 Heart Score: C/O Chest Pain: N/A Risk Factors: Risk Factors: DM, Current or recent (<one month) smoker, HTN, HLP, family history of CAD, obesity. Risk Scores: Score 0 - 3: 2.5% MACE over next 6 weeks - Discharge Home Score 4 - 6: 20.3% MACE over next 6 weeks - Admit for Clinical Observation Score 7 - 10: 72.7% MACE over next 6 weeks - Early Invasive Strategies Course & Med Decision Making: Course & Med Decision Making Pertinent Labs and Imaging studies reviewed. (See chart for details) The patient has a slightly elevated white count with a left shift. Her other labs are essentially unremarkable except for hyponatremia. Patient's chest x- ray shows large left-sided consolidation with likely component of pleural effusion. See official read for details. Patient has many allergies. She was also on a care facility. I will treat her with aztreonam 2 g every 8 hours. I will admit the patient to the hospital. I spoke with Dr. Priest and he has accepted the patient for admission. [] Pj Disclaimer: Pj Disclaimer: This electronic medical record was generated, in whole or in part, using a voice recognition dictation system. Departure Departure: Impression: Primary Impression: Pneumonia involving left lung Additional Impression: Hyponatremia Disposition: ADMITTED INPATIENT Admitting Physician: Sheree Priest Condition: STABLE Referrals: JOSE WATKINS DO (PCP) MURALI MAHAJAN DO Mar 16, 2021 08:22
[2021-03-16 08:59] LABS: BASO % 0 % (0-3); CALCIUM 8.7 mg/dL (8.5-10.1); CREATININE 0.7 mg/dL (0.6-1.0); EOS % 0 % (0-3); GFR 81.6; HEMATOCRIT 30.8 % (36.0-47.0); HEMOGLOBIN 10.3 g/dL (12.0-15.5); LYMPH # 0.6 x10^3/uL (1.0-4.8); LYMPH % 5 % (24-48); MEAN CORPUSCULAR HEMOGLOBIN 30 pg (25-35); MEAN CORPUSCULAR HGB CONC 34 g/dL (31-37); MEAN CORPUSCULAR VOLUME 89 fL (79-100); MONO # 1.3 x10^3/uL (0.0-1.1); MONO % 11 % (0-9); NEUT # 10.6 x10^3uL (1.8-7.7); NEUT % 84 % (31-73); PLATELET COUNT 302 x10^3/uL (140-400); POTASSIUM 4.3 mmol/L (3.5-5.1); RED BLOOD COUNT 3.46 x10^6/uL (3.50-5.40); RED CELL DISTRIBUTION WIDTH 12.8 % (11.5-14.5); WHITE BLOOD COUNT 12.6 x10^3/uL (4.0-11.0)
[2021-03-16 09:05] LABS: ALBUMIN 2.6 g/dL (3.4-5.0); ALBUMIN/GLOBULIN RATIO 0.6 (1.0-1.7); TOTAL BILIRUBIN 0.3 mg/dL (0.2-1.0)
--- NOTE | 2021-03-16 09:26 | RAD ---
INDICATION: Reason: SOB / Spl. Instructions: / History: COMPARISON: March 08, 2020 FINDINGS: Single view of chest obtained. Cardiac silhouette is prominent in size. Blunting of the left costophrenic angle with focal airspace opacity at the left lung. Linear opacity at the right lower lung. Degenerative changes spine Fullness of pulmonary [place]. IMPRESSION: * Increased opacity within the left lung which could be from airspace consolidation with a component of pleural effusion also possible. * Mild linear opacity at the right lower lung could be from atelectasis or infiltrate. Follow-up cou ld be obtained to ensure that these findings resolve to exclude any persistent nodule. Electronically signed by: Serg Fraire MD (03/16/2021 9:24 AM) [id number]
[2021-03-16 10:42] LABS: INFLUENZA A PATIENT NEGATIVE (NEGATIVE); INFLUENZA B PATIENT NEGATIVE (NEGATIVE)
[2021-03-16] MEDS ORDERED: HYDROmorphone PF 1 MG/ML DISP.SYRIN IVP ONE (11:00)
[2021-03-16] MEDS ORDERED: HYDROmorphone PF 1 MG/ML DISP.SYRIN ONE (11:01)
[2021-03-16] MEDS: AZTREONAM 2 GM in IV NORMAL SALINE 100ML 100 ML IV SCH ×2 (11:07→11:39)
--- NOTE | 2021-03-16 13:35 | EKG ---
[address] [address] Test Date: 2021-03-16 Test Time: 08:14:12 Pat Name: SARA JOE Department: Room: Gender: F Assistant Professor Of Life Sciences: SAMANTA : 1945 Requested By: MURALI MAHAJAN Order Number: [id number] Reading MD: Amor Velarde Measurements Intervals [place] Rate: 81 P: -39 [place]: 136 QRS: 6 QRSD: 86 T: 61 QT: 362 QTc: 421 Interpretive Statements SINUS RHYTHM Electronically Signed On 03-20-2021 16:18:41 METAL DRAWER by Amor Velarde
[2021-03-16] MEDS ORDERED: FUROSEMIDE 40 MG/4 ML VIAL ONE (14:44)
[2021-03-16 15:36] LABS: BILIRUBIN,URINE NEG (NEG); CLARITY,URINE CLOUDY; COLOR,URINE YELLOW; GLUCOSE,URINE NEG (NEG); NITRITE,URINE NEG (NEG); UROBILINOGEN,URINE 0.2 mg/dL (0.2 mg/dL)
[2021-03-16 15:37] LABS: BACTERIA,URINE MANY /HPF (0-FEW); HYALINE CASTS, URINE FEW /HPF; SQUAMOUS EPITHELIAL CELL,UR MOD /LPF
[2021-03-16] MEDS ORDERED: oxyCODONE IR 5 MG TABLET PO PRN (21:15)
[2021-03-16] MEDS ORDERED: AZTREONAM 2 GM in IV NORMAL SALINE 100ML 100 ML IV ONE (21:30)
[2021-03-16] MEDS ORDERED: oxyCODONE IR 5 MG TABLET PO ONE (21:30)
[2021-03-16] MEDS ORDERED: IPRATRPIUM/ALBUTEROL 0.5/2.5MG 3 ML NEBU. ONE (22:32)
[2021-03-16] MEDS ORDERED: IPRATRPIUM/ALBUTEROL 0.5/2.5MG 3 ML NEBU. NEB ONE (23:00)
[2021-03-17] MEDS ORDERED: MELATONIN 3 MG TABLET PO PRN (04:15)
[2021-03-17] MEDS ORDERED: oxyCODONE ER 10 MG TAB.ER.12H PO SCH ×2 (05:00→21:00)
[2021-03-17] MEDS ORDERED: AZTREONAM 2 GM in IV NORMAL SALINE 100ML 100 ML IV SCH (06:00)
--- NOTE | 2021-03-17 13:01 | RAD ---
EXAM: Chest, single view. HISTORY: Shortness of breath. COMPARISON: 03/16/2021 FINDINGS: A frontal view of the chest is obtained. There has been slight interval decrease in lingula r and left lower lobe partially consolidated infiltrate in a small left pleural effusion. There is st able right infrahilar atelectasis or infiltrate. There is a stable cardiac silhouette. There is no pn eumothorax. IMPRESSION: Slight interval decrease in lingular and left lower lobe partial consolidated infiltrate and small pleural effusion. Stable right infrahilar atelectasis or infiltrate. Electronically signed by: Pauline Willoughby MD (03/17/2021 12:59 PM) [id number]
[2021-03-17] MEDS: cloNIDine HCL 0.1 MG TABLET PO SCH ×2 (14:15→21:35)
[2021-03-17 14:30] LABS: BASO % 0 % (0-3); EOS # 0.1 x10^3/uL (0.0-0.7); EOS % 1 % (0-3); HEMOGLOBIN 10.9 g/dL (12.0-15.5); LYMPH # 0.5 x10^3/uL (1.0-4.8); LYMPH % 4 % (24-48); MEAN CORPUSCULAR HEMOGLOBIN 30 pg (25-35); MEAN CORPUSCULAR HGB CONC 33 g/dL (31-37); MEAN CORPUSCULAR VOLUME 90 fL (79-100); MONO # 1.3 x10^3/uL (0.0-1.1); MONO % 10 % (0-9); NEUT % 85 % (31-73); PLATELET COUNT 374 x10^3/uL (140-400); RED BLOOD COUNT 3.66 x10^6/uL (3.50-5.40); RED CELL DISTRIBUTION WIDTH 12.8 % (11.5-14.5)
[2021-03-17] MEDS ORDERED: CARVEDILOL 12.5 MG TABLET PO SCH (14:30)
[2021-03-17] MEDS ORDERED: NYSTATIN TOPICAL POWDER 15GM BOTTLE. TP SCH (14:30)
[2021-03-17 14:31] LABS: CREATININE 0.6 mg/dL (0.6-1.0); GFR 97.5; POTASSIUM 4.2 mmol/L (3.5-5.1)
[2021-03-17] MEDS ORDERED: VANCOMYCIN 1 GM in IV NORMAL SALINE 250ML 250 ML IV SCH (18:15)
[2021-03-17] MEDS ORDERED: POLYETHYLENE GLYCOL 3350 17 GM PACKET. PO PRN (18:15)
[2021-03-17] MEDS ORDERED: NYSTATIN TOPICAL POWDER 15GM BOTTLE. TP PRN (18:15)
[2021-03-17] MEDS ORDERED: NITROGLYCERIN SUBLINGUAL 0.4 MG BOTTLE OF 25. SL PRN (18:15)
[2021-03-17] MEDS ORDERED: OXYBUTYNIN CHLORIDE 5 MG TABLET PO PRN (18:15)
[2021-03-17] MEDS ORDERED: VANCOMYCIN PER PHARMACY MC PRN (18:45)
[2021-03-17] MEDS ORDERED: VANCOMYCIN 2 GM in IV NORMAL SALINE 500ML 500 ML IV ONE (19:00)
[2021-03-17] MEDS ORDERED: VANCOMYCIN 1 GM VIAL. ONE ×2 (19:10→19:22)
[2021-03-17] MEDS ORDERED: IV NORMAL SALINE 500ML 500 ML ONE ×2 (19:10→19:21)
[2021-03-17] MEDS ORDERED: BUDESONIDE 0.5 MG/2 ML NEBU NEB SCH (20:00)
[2021-03-17] MEDS ORDERED: ALBUTEROL SULFATE 2.5 MG/3 ML NEBU. NEB SCH (20:00)
[2021-03-17] MEDS ORDERED: POLYVINYL ALCOHOL 1.4% OPHTH SOLUTION 15ML BOTTLE. OU SCH (21:00)
[2021-03-17] MEDS ORDERED: LACTOBACILLUS RHAMNOSUS GG 1 CAPSULE. PO SCH (21:00)
[2021-03-17] MEDS ORDERED: ZIPRASIDONE 60 MG CAPSULE. PO SCH (21:00)
[2021-03-17] MEDS ORDERED: NON FORMULARY ITEM (Fluticasone/Salmeterol (Advair 500-50 Diskus) 1 EACH) IH SCH (21:00)
[2021-03-17] MEDS ORDERED: SODIUM BICARBONATE 650 MG TABLET PO SCH (21:00)
[2021-03-17] MEDS ORDERED: MEROPENEM 1 GM in IV NORMAL SALINE 100ML 100 ML IV SCH (21:00)
[2021-03-17] MEDS ORDERED: IV NORMAL SALINE 100ML 100 ML ONE (21:12)
[2021-03-17] MEDS ORDERED: MEROPENEM 1 GM VIAL IV ONE (21:12)
[2021-03-18 00:23] VITALS: BP 120/62
[2021-03-18] MEDS ORDERED: LEVOTHYROXINE 150 MCG TABLET PO SCH (06:00)
[2021-03-18] MEDS ORDERED: CARVEDILOL 12.5 MG TABLET PO SCH (08:00)
[2021-03-18] MEDS ORDERED: POLYETHYLENE GLYCOL 3350 17 GM PACKET. PO SCH (09:00)
[2021-03-18] MEDS ORDERED: PANTOPRAZOLE 40 MG TABLET. PO SCH (09:00)
[2021-03-18] MEDS ORDERED: CITALOPRAM 20 MG TABLET. PO SCH (09:00)
[2021-03-18] MEDS ORDERED: MULTIVITAMIN with MINERAL TABLET. PO SCH (09:00)
[2021-03-18] MEDS ORDERED: LOSARTAN 50 MG TABLET. PO SCH (09:00)
[2021-03-18] MEDS ORDERED: EZETIMIBE 10 MG TABLET PO SCH (09:00)
[2021-03-18] MEDS ORDERED: VANCOMYCIN 1 GM in IV NORMAL SALINE 250ML 250 ML IV SCH (20:00)
== END 2021-03-18 00:48 | disposition short-term general hospital (02) ==
LOC: ER 08:00 → ER HOLD 10:38 → UNDOADMIN 10:38 → ER 03-18 00:48
DX: J18.1 Lobar pneumonia, unspecified organism (principal); E87.1 Hypo-osmolality and hyponatremia; F41.9 Anxiety disorder, unspecified; I25.10 Atherosclerotic heart disease of native coronary artery without angina pectoris; I11.0 Hypertensive heart disease with heart failure; I50.9 Heart failure, unspecified; J44.9 Chronic obstructive pulmonary disease, unspecified; E11.9 Type 2 diabetes mellitus without complications; K21.9 Gastro-esophageal reflux disease without esophagitis; E03.9 Hypothyroidism, unspecified; I25.2 Old myocardial infarction; Z20.822 Contact with and (suspected) exposure to COVID-19; Z86.2 Personal history of diseases of the blood and blood-forming organs and certain disorders involving the immune mechanism; Z87.11 Personal history of peptic ulcer disease; Z87.440 Personal history of urinary (tract) infections; Z90.89 Acquired absence of other organs; Z90.49 Acquired absence of other specified parts of digestive tract; Z91.041 Radiographic dye allergy status; Z88.6 Allergy status to analgesic agent; Z88.0 Allergy status to penicillin; Z88.1 Allergy status to other antibiotic agents; Z88.8 Allergy status to other drugs, medicaments and biological substances; Z91.018 Allergy to other foods
CPT/HCPCS: 36415; 71045; 80048; 80053; 81001; 82803; 83605; 84484; 85025; 87040; 87086; 87426; 87804; 93005; 94640; 94660; 96361; 96365; 96366; 96367; 96375; 99285; J1170; J2185; J3370; J3490; J7030; J7040; J7613; U0003; 96360